=== PATIENT | female | born 1940 | race Caucasian/White ===

== ENCOUNTER 2018-04-22 08:57 | Day surgery (SDC) | payer OTHER ==
[~2018-04-22] VITALS: Ht 149.9 cm; Wt 73.9 kg
[~2018-04-22 08:57] MED LIST: ASPI81CH PO; ASPI81EC PO; ATOR40TA PO; CARV25 PO; CHOL10002 PO; CIPR500 PO; CONEST.625; DIPATR PO; FELO5CR; FELO5CR PO; FURO20; FURO40 PO; HYDACE5 PO; HYDR1TAB94 PO; ISOMON20 PO; LOSA25 PO; MECL12.5 PO; METO100ER PO; METO50ER; METO50ER PO; NITR.4SL SL; PARO20; PARO20 PO; POTA10T PO; POTCHL10ER; POTCHL20ER PO; PROCODE120 PO; PROM25 PO; RANO500T PO; RXDIPATR PO; SPIR25 PO; Senna8.6 MG PO; [UNRECOGNIZED DRUG - CODE] TOP
[2018-04-22] MEDS ORDERED: LEVOCETIRIZINE D5 MG PO (11:06)
== END 2018-04-22 22:42 | disposition home or self-care (01) ==
LOC: ORD 08:57 → ORSCMMR 08:57 → ORD 04-29 10:00
PROVIDERS: Internal Medicine Gastroenterology
PROC: 0DBE8ZX Excision of Large Intestine, Via Natural or Artificial Opening Endoscopic, Diagnostic (ICD-10-PCS; principal; 2018-04-22 11:00)
PROC: 0DBM8ZX Excision of Descending Colon, Via Natural or Artificial Opening Endoscopic, Diagnostic (ICD-10-PCS; principal; 2018-04-22 11:00)
DX: K57.30 Diverticulosis of large intestine without perforation or abscess without bleeding (principal); R15.9 Full incontinence of feces; D12.4 Benign neoplasm of descending colon; Z86.010 Personal history of colon polyps; K64.8 Other hemorrhoids; I25.10 Atherosclerotic heart disease of native coronary artery without angina pectoris; Z79.899 Other long term (current) drug therapy; Z79.82 Long term (current) use of aspirin; Z87.891 Personal history of nicotine dependence
CPT/HCPCS: 88305; J2250; J3010; J7120

== ENCOUNTER 2020-10-23 03:45 | Observation (INO) | payer OTHER ==
[~2020-10-23] VITALS: Ht 149.9 cm; Wt 73.8 kg
[~2020-10-23 03:45] MED LIST changes: -ISOMON20 PO; +Imdur-ER60 MG PO; +LEVOCETIRIZINE D5 MG PO
[2020-10-23 04:04] LABS: BASOPHILS ABSOLUTE AUTO 0.03 K/mm3 (0.00-0.23); BASOPHILS PERCENT AUTO 0 % (0-2); EOSINOPHILS ABSOLUTE AUTO 0.11 K/mm3 (0.00-0.68); EOSINOPHILS PERCENT AUTO 2 % (0-6); Hematocrit 38.9 % (33.0-51.0); Hemoglobin 12.8 g/dL (11.5-16.0); IMMATURE GRAN ABSOLUTE AUTO 0.03 K/mm3 (0.00-0.10); IMMATURE GRAN PERCENT AUTO 0 % (0-1); LYMPHOCYTES ABSOLUTE AUTO 0.94 K/mm3 (0.84-5.20); LYMPHOCYTES PERCENT AUTO 13 % (21-46); MONOCYTES ABSOLUTE AUTO 0.46 K/mm3 (0.16-1.47); MONOCYTES PERCENT AUTO 6 % (4-13); Mean Corpuscular HGB Conc 32.9 g/dL (31.5-36.5); Mean Corpuscular Volume 104 fL (80-100); Mean Platelet Volume 9.5 fL (9.1-12.4); NEUTROPHILS ABSOLUTE AUTO 5.81 K/mm3 (1.96-9.15); NEUTROPHILS PERCENT AUTO 79 % (41-73); Platelet Count 119 K/mm3 (150-400); RDW Coefficient Variation 13.8 % (11.7-14.2); RDW Standard Deviation 53.1 fL (35.1-46.3); Red Blood Cell Count 3.76 M/mm3 (3.80-5.20); White Blood Cell Count 7.38 K/mm3 (4.00-11.30)
[2020-10-23 04:43] LABS: Ethanol (Alcohol), Blood, Med <3 mg/dL
[2020-10-23 04:44] LABS: Alanine Aminotransfer (ALT/SGP 21 U/L (12-78); Albumin, Blood 3.6 g/dL (3.4-5.0); Albumin/Globulin Ratio 1.2 (0.8-1.8); Alk Phos 83 U/L (50-136); Anion Gap 6 mmol/L (6-16); Aspartate Aminotrans (AST/SGOT 24 U/L (12-37); Bilirubin, Total 0.6 mg/dL (0.1-1.0); Blood Urea Nitrogen 17 mg/dL (8-24); Bun/Creatinine Ratio 19.3 (12.0-20.0); CO2, Blood 24 mmol/L (21-32); Calcium, Blood 8.6 mg/dL (8.5-10.1); Chloride, Blood 108 mmol/L (98-108); Creatinine, Blood 0.88 mg/dL (0.40-1.00); Glomerular Filtration Rate >60 (60-); Glucose, Blood 105 mg/dL (70-99); Potassium, Blood 3.8 mmol/L (3.5-5.5); Sodium, Blood 138 mmol/L (136-145); Total Protein, Blood 6.6 g/dL (6.4-8.2)
[2020-10-23 04:49] LABS: Troponin I 0.529 ng/mL (0.000-0.040)
--- NOTE | 2020-10-23 12:15 | NUR ---
echocardiogram complete
--- NOTE | 2020-10-23 17:30 | NUR ---
SHIFT SUMMARY PATIENT IS A/O X3, FORGETS LIMITATIONS. PT IS COOPERATIVE OF CARE AND DOES NOT ALWAYS CALL APPROPIATELY, BED ALARM IN PLACE. VSS THROUGHOUT SHIFT. O2 SATS >94% ON RA THOUGHOUT SHIFT. PT WAS UP TO TOILET W/CANE AND PT WOULD BE UNSTAIDY. PT HAS LASCERATION ON BACK OF HEAD THAT IS C/D/I. NO C/O CHEST PAIN/PRESSURE THROUGHOUT SHIFT. PT C/O PAIN IN NECK AND BACK OF HEAD, TREATED PER EMAR. CALL LIGHT WITHIN REACH OF PT.
--- NOTE | 2020-10-24 04:48 | NUR ---
SHIFT SUMMARY NO ACUTE CHANGES THI SHIFT. VSS. PT AXO. IN SR/PACED. CARRIE REMAIN FIXATED TO OCCIPTAL REGION LAC. NO NEW BLEEDING NOTED. PT UP TO BSC THIS SHIFT, VERY WEAK WITH 2 PERSON ASSIST. PT HAS NOT BEEN IMPULSIVE THIS SHIFT AND HAS CALLED FOR NEEDS APPROPRIATELY. WCTM.
--- NOTE | 2020-10-24 08:10 | NUR ---
INITIAL ASSESSMENT PATIENT ALERT AND ORIENTED X 4. PATIENT IS FORGETFUL AT TIMES. PATIENT PLEASANT AND COOPERATIVE. PATIENT AFEBRILE. PATIENT HAS NO COMPLAINTS OF PAIN OR DISCOMFORT AT THIS TIME. PATIENT 1 TO 2 PERSON ASSIST. PATIENT VERY WEAK AND UNSTEADY ON FEET. PATIENT STATES "MY KNEES ARE USUALLY NOT THIS BAD" AND STATES THAT L KNEE IS LOCKING IN PLACE. PATIENT SATTING 90% AND GREATER ON RA. LUNGS CLEAR IN UPPER LOBES AND DIMINISHED IN LOWER LOBES. PATIENT PACED, HR AT 69. BP 135/59. PATIENT HAS ICD/ PACER. GI AND APPEAR WNL. [address] TO OCCIPITAL REGION. SACRUM REDDENED. PATIENT BEING ASSISTED AND REMINDED TO REPOSITION SELF Q2H TO AVOID PRESSURE SORE. IV FLUSHED AND SALINE LOCKED. BED LOW, CALL LIGHT IN REACH. WILL CONTINUE TO MONITOR PATIENT FREQUENTLY THROUGHOUT SHIFT.
--- NOTE | 2020-10-24 12:09 | NUR ---
PATIENT AFEBRILE. NO COMPLAINTS OF PAIN OR DISCOMFORT. HR IN THE 60S. SBP IN THE 130S. NO OTHER ACUTE CHANGES TO NOTE ON AT THIS TIME. WILL CONTINUE TO MONITOR.
--- NOTE | 2020-10-24 16:15 | NUR ---
PATIENT AFEBRILE. NO COMPLAINTS OF PAIN OR DISCOMFORT. HR IN THE 60S. BP 111/ 47. PATIENT VISITING IN ROOM WITH . NO OTHER ACUTE CHANGES TO NOTE ON AT THIS TIME. WILL CONTINUE TO MONITOR.
--- NOTE | 2020-10-24 18:37 | NUR ---
SHIFT SUMMARY PATIENT REMAINED ALERT AND ORIENTED, HOWEVER FORGETFUL AT TIMES. PATIENT REMIANED AFEBRILE. PATIENT REMAINED 1-2 PERSON ASSIST. PATIENT WEAK AND VERY UNSTEADY ON FEET. HAD TALK WITH PATIENT'S SON TODAY AND HE FEELS LIKE SHE WOULD BE SAFER DISCHARGING TO A SNF THAN TO BACK HOME WITH WHERE SHE WILL LIKELY HAVE ANOTHER FALL. PATIENT HAD NO COMPLAINTS OF PAIN. PATIENT REMAINED SATTING 90% AND GREATER ON RA. PATIENT REMAINED PACED, HR IN THE 60S. SBP LOW 100S TO 130S. GI WNL. PATIENT HAD BM THIS SHIFT. GOOD APPETITE. WNL. NO CHANGES TO SKIN NOTED. AND SON HERE TO VISIT TODAY. PATIENT HAS NO COMPLAINTS AT THIS TIME. BED LOW, CALL LIGHT IN REACH, BED ALARM ON. REPORT WILL BE GIVEN TO ASSUMING SOLDER DEPOSIT OPERATOR NURSE SHORTLY.
--- NOTE | 2020-10-24 21:30 | NUR ---
ASSUMED CARE OF PATIENT AT APPROXIMATELY 1915 FROM REBEKAH Ross RN. PATIENT ALERT AND ORIENTED X4; FORGETFUL AT TIMES. PATIENT REPORTED A HEADACHE; MEDICATED PER EMAR. PATIENT DENIES NUMBNESS, TINGLING, DIZZINESS OR NAUSEA. PATIENT MEDICAL TELE STATUS. PACED ON TELE; OXYGEN SATURATION ABOVE 90% ON ROOM AIR. 2 PERSON MAX ASSIST TO BEDSIDE COMMODE; UNSTEADY GAIT. PATIENT REPORTS SON BROUGHT BOTTLE OF WINE FOR MOTHERS DAY BUT SENT IT HOME FOR . PATIENT REPORTS SHE DRINKS A SMALL GLASS OF WINE EVERY NIGHT BEFORE BED.
--- NOTE | 2020-10-24 22:54 | NUR ---
REPORT GIVEN TO NORM Osorio RN ON SURGICAL FLOOR. PATIENT MEDICAL TELE STATUS; TO BE TRANSFERRED VIA WHEELCHAIR W/ ALL BELONGINGS.
--- NOTE | 2020-10-24 23:48 | NUR ---
TRANSFER TO ROOM 210 PT TO ROOM. AAOX4. TRANSFER FROM WHEELCHAIR TO BED 2 PERSON MODERATE ASSIST, UNSTEADY WITH CANE. ORIENTED TO ROOM + CALL LIGHT USE. VSS. NO ACUTE CHANGES FROM PREVIOUS ASSESSMENT THIS SHIFT. PT REQUESTING SLEEP. CALL LIGHT IN REACH + BED ALARM ON FOR SAFETY.
--- NOTE | 2020-10-25 10:12 | NUR ---
PATIENT RESTING QUIETLY IN BED. OPENS EYES BRIEFLY IN RESPONSE TO HER NAME. BREATHING IS SHALLOW. 2L O2 VIA NC FOR COMFORT. MURILLO AND RECTAL TUBE BOTH PATENT. SEEN BY [facility] PHYSICIAN THIS AM. THIS RN SPOKE WITH DAUGHTER IN LAW ON THE PHONE. DR RODRIGUEZ TO CALL DAUGHTER IN LAW OF PATIENT TO DISCUSS POSSIBLE DISCHARGE HOME WITH HOSPICE.
--- NOTE | 2020-10-25 13:36 | NUR ---
CARE COORDINATION REFERRAL - ADMIT: 10/23/2020 DISCHARGE: DX: ELEVATED TROPNIN, MECHANICAL FALL HEAD LAC. CC: HH [facility] CALL: RESIDENCE: HOME - [address] [place] [id number] CAREGIVER: NIKOLAS POTTER, SPOUSE / PARTNER, DX: CAD, CHRONIC SYSTOLIC HEART FAILURE, BILATERAL ATHEROSCLEROSIS OF CAROTID ARTERIES, ISCHEMIC CONGESTIVE CARDIOMYOPATHY, ESSENTIAL HTN DME: NONE CCM: NO PREVIOUS REFERRALS TO CCM HOME HEALTH: NONE SUMMARY: ADMIT: 10/23/20 10/25/20- PER CHART REVIEW WITH DR. RODRIGUEZ, PT HAS FREQUENT FALLS AND IS A FAILURE TO THRIVE PT. SHE LIVES WITH HER ELDERLY AND HAS NO FAMILY IN TOWN TO HELP. PT IS WORKING WITH PT AND IS RECOMMENDING HOME HEALTH WITH RECOMMENDING BLUEPRINT DUPLICATOR TO COME AND HELP WITH CARE NEEDS. -YUE
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
--- NOTE | 2020-10-25 18:28 | NUR ---
SHIFT SUMMARY PATIENT RESPONDS APPROPRIATELY WHEN AWAKE. TROPONINS TRENDING DOWN. PATIENT WORKED WELL WITH PHYSICAL THERAPY TODAY. TOLERATING REGULAR DIET, VOIDING WELL. PLAN TO DISCHARGE HOME TOMORROW 10/26/20.
--- NOTE | 2020-10-26 05:08 | NUR ---
SHIFT SUMMARY S/P CHEST PAIN, A/O X4 BUT OCCASIONALLY FORGETFUL, VSS, TOLERATING PO, PAIN WELL CONTROLLED PER EMAR, UP W/ ASSISTANCE, POSSIBLE DC LATER TODAY PENDING PT RECOMMENDATION, NO ACUTE EVENTS THIS SHIFT. CALL LIGHT IN REACH, WILL CONTINUE TO MONITOR AND REPORT TO ONCOMING DAY RN.
[2020-10-26] MEDS ORDERED: FOLI1 PO (13:07)
[2020-10-26] MEDS ORDERED: Acetaminophen325 M1 PO (13:07)
[2020-10-26] MEDS ORDERED: B-1100 M1 PO (13:08)
[2020-10-26] MEDS ORDERED: Lisinopril2.5 MG PO (13:08)
[2020-10-26] MEDS ORDERED: Norco 5-325 Ta1 EACH PO (13:08)
--- NOTE | 2020-10-26 14:26 | NUR ---
DC INSTRUCTIONS GIVEN, VERBALIZED UNDERSTANDING, IV DC'D CATH INTACT.
--- NOTE | 2020-10-26 15:46 | NUR ---
10/26/20- met with pt and discussed d/c. She will be going home with her . She acknowledges that they need help and discussed and provided brochures for local assisted living places. Pt was set to d/c and was ready to go. Was not able discuss in details of assisted living. Discussed MIHIR and she acknowledged understanding of MIHIR. She will review information and will call the clinic if she needs help with finding a place to live. -spencer
== END 2020-10-26 14:43 | disposition home or self-care (01) ==
LOC: ER 03:45 → PCU 03:46 → SURS 10-24 23:23
PROVIDERS: Emergency Medicine; ADMIT Family Medicine
PROC: 0HQ0XZZ Repair Scalp Skin, External Approach (ICD-10-PCS; principal; 2020-10-23)
DX: S01.01XA Laceration without foreign body of scalp, initial encounter (principal); I11.0 Hypertensive heart disease with heart failure; I50.22 Chronic systolic (congestive) heart failure; E78.5 Hyperlipidemia, unspecified; J43.9 Emphysema, unspecified; I25.10 Atherosclerotic heart disease of native coronary artery without angina pectoris; R79.89 Other specified abnormal findings of blood chemistry; I25.5 Ischemic cardiomyopathy; D69.59 Other secondary thrombocytopenia; T45.515A Adverse effect of anticoagulants, initial encounter; M47.812 Spondylosis without myelopathy or radiculopathy, cervical region; F41.8 Other specified anxiety disorders; R53.1 Weakness; R53.81 Other malaise; F10.10 Alcohol abuse, uncomplicated; R62.7 Adult failure to thrive; Z91.81 History of falling; Z79.82 Long term (current) use of aspirin; Z23 Encounter for immunization; Z88.0 Allergy status to penicillin; Z88.2 Allergy status to sulfonamides; Z87.891 Personal history of nicotine dependence; Z86.018 Personal history of other benign neoplasm; Z86.73 Personal history of transient ischemic attack (TIA), and cerebral infarction without residual deficits; Z85.3 Personal history of malignant neoplasm of breast; Z95.1 Presence of aortocoronary bypass graft; Z95.810 Presence of automatic (implantable) cardiac defibrillator; W01.10XA Fall on same level from slipping, tripping and stumbling with subsequent striking against unspecified object, initial encounter; Y92.019 Unspecified place in single-family (private) house as the place of occurrence of the external cause
CPT/HCPCS: 12001; 36415; 70450; 72125; 80053; 82550; 82607; 82746; 84484; 85025; 85730; 90471; 90714; 93005; 93010; 93306; 96374; 97112; 97116; 97162; 97165; 97530; 97535; 99285-25; A9270; G0378; G0480; J1644; L0160

== ENCOUNTER 2021-05-21 18:47 | Inpatient (IN) | payer OTHER ==
[~2021-05-21] VITALS: Ht 160 cm; Wt 66.8 kg
[~2021-05-21 18:47] MED LIST changes: +Acetaminophen325 M1 PO; +B-1100 M1 PO; +FOLI1 PO; +Lisinopril2.5 MG PO; +Norco 5-325 Ta1 EACH PO
[2021-05-21 19:06] LABS: PCO2 Arterial 58.3 mmHg (35-45); PO2 Arterial 117 mmHg (80-100)
[2021-05-21 19:06] LABS: BASOPHILS ABSOLUTE AUTO 0.05 K/mm3 (0.00-0.23); BASOPHILS PERCENT AUTO 1 % (0-2); EOSINOPHILS ABSOLUTE AUTO 0.25 K/mm3 (0.00-0.68); EOSINOPHILS PERCENT AUTO 3 % (0-6); Hematocrit 41.1 % (33.0-51.0); Hemoglobin 12.8 g/dL (11.5-16.0); IMMATURE GRAN ABSOLUTE AUTO 0.03 K/mm3 (0.00-0.10); IMMATURE GRAN PERCENT AUTO 0 % (0-1); LYMPHOCYTES ABSOLUTE AUTO 2.08 K/mm3 (0.84-5.20); LYMPHOCYTES PERCENT AUTO 23 % (21-46); MONOCYTES ABSOLUTE AUTO 0.76 K/mm3 (0.16-1.47); MONOCYTES PERCENT AUTO 9 % (4-13); Mean Corpuscular HGB 30.8 pg (26.0-34.0); Mean Corpuscular HGB Conc 31.1 g/dL (31.5-36.5); Mean Corpuscular Volume 99 fL (80-100); Mean Platelet Volume 9.9 fL (9.1-12.4); NEUTROPHILS ABSOLUTE AUTO 5.73 K/mm3 (1.96-9.15); NEUTROPHILS PERCENT AUTO 64 % (41-73); Platelet Count 187 K/mm3 (150-400); RDW Coefficient Variation 14.8 % (11.7-14.2); RDW Standard Deviation 53.5 fL (35.1-46.3); Red Blood Cell Count 4.16 M/mm3 (3.80-5.20)
[2021-05-21 19:07] LABS: pH Blood Arterial 7.27 (7.35-7.45)
[2021-05-21 19:30] LABS: Alanine Aminotransfer (ALT/SGP 57 U/L (12-78); Albumin, Blood 3.6 g/dL (3.4-5.0); Albumin/Globulin Ratio 1.2 (0.8-1.8); Alk Phos 178 U/L (50-136); Anion Gap 7 mmol/L (6-16); Aspartate Aminotrans (AST/SGOT 86 U/L (12-37); Bilirubin, Total 0.9 mg/dL (0.1-1.0); Blood Urea Nitrogen 11 mg/dL (8-24); Bun/Creatinine Ratio 13.5 (12.0-20.0); CO2, Blood 25 mmol/L (21-32); Calcium, Blood 8.3 mg/dL (8.5-10.1); Chloride, Blood 111 mmol/L (98-108); Creatinine, Blood 0.82 mg/dL (0.40-1.00); Globulin, Blood 3.1 g/dL (2.2-4.0); Glomerular Filtration Rate >60 (60-); Glucose, Blood 185 mg/dL (70-99); Potassium, Blood 4.2 mmol/L (3.5-5.5); Sodium, Blood 143 mmol/L (136-145); Total Protein, Blood 6.7 g/dL (6.4-8.2); Troponin I 0.083 ng/mL (0.000-0.040)
[2021-05-21 19:51] LABS: Influenza A, PCR NEGATIVE (NEGATIVE); Influenza B, PCR NEGATIVE (NEGATIVE); Resp Syncytial Virus, PCR NEGATIVE (NEGATIVE); SARS-Cov-2 (COVID-19) PCR, MMC NEGATIVE (NEGATIVE)
[2021-05-22 04:20] LABS: Anion Gap 7 mmol/L (6-16); Blood Urea Nitrogen 13 mg/dL (8-24); Bun/Creatinine Ratio 17.3 (12.0-20.0); CO2, Blood 31 mmol/L (21-32); Calcium, Blood 8.7 mg/dL (8.5-10.1); Chloride, Blood 106 mmol/L (98-108); Creatinine, Blood 0.75 mg/dL (0.40-1.00); Glomerular Filtration Rate >60 (60-); Glucose, Blood 136 mg/dL (70-99); Potassium, Blood 3.6 mmol/L (3.5-5.5); Sodium, Blood 144 mmol/L (136-145)
--- NOTE | 2021-05-22 05:37 | NUR ---
SHIFT SUMMARY PT IS ALERT AND ORIENTED. VITALS ARE STABLE AND THERE HAVE BEEN NO ACUTE CHANGES T/0 THE SHIFT. PT REPORTED MILD CHEST PAIN OF 2/10 WHEN ADMITTED ONTO FLOOR, STATED THAT SHE DID NOT TAKE ANY OF HER EVENING CARDIAC MEDS. DENIES CHEST PAIN NOW. SHE IS CURRENTLY ON 1L NC WITH SATS OF >92%. PT IS NPO AND ONLY TOOK SIPS WITH MEDICATION. CALL LIGHT IS WITHIN REACH.
--- NOTE | 2021-05-22 07:36 | NUR ---
CARE ASSUMPTION THIS RN ASSUMED CARE FROM ALLYN RN AT 0700. PATIENT IS A/OX4. VSS. SPO2 >95% ON 1L NC. TELE SR PACED 74. PATIENT REPORTS NO CHEST PAIN, PAIN, OR SOB. MD BURDEN IN TO SEE PATIENT THIS AM. CALL LIGHT WITHIN REACH AND BED IN LOWEST POSITON. WILL CONTINUE TO MONITOR AND PROVIDE CARE.
[2021-05-22 08:29] LABS: Magnesium, Blood 1.7 mg/dL (1.6-2.4)
[2021-05-22 08:34] LABS: Phosphorus, Blood 4.5 mg/dL (2.5-4.9); Troponin I 0.566 ng/mL (0.000-0.040)
[2021-05-22] MEDS ORDERED: BUPR150ER PO (16:13)
[2021-05-22] MEDS ORDERED: CLOP75 PO (16:13)
--- NOTE | 2021-05-22 17:14 | NUR ---
SHIFT SUMMARY PATIENT IS A/OX4. VSS. MED STATUS WITH NO TELE. PATIENT REPORTS NO SOB, OR CHEST PAIN. PATIENT DOES REPORT A HEADACHE AT 6/10 AND RECIEVED TYLENOL FOR RELEIF. NO ACUTE CHANGES THIS SHIFT. CALL LIGHT WITHIN REACH AND BED IN LOWEST POSITION. WILL CONTINUE TO MONITOR AND PROVIDE CARE UNTIL HAND OFF WITH NEXT SHIFT.
--- NOTE | 2021-05-22 19:47 | NUR ---
ASSUMED CARE PT IS ALERT AND ORIENTED X4. VITALS ARE STABLE AND ON ROOM AIR. PT DENIES CHEST PAIN OR SOB. SHE IS LAYING IN BED, WATCHING TV AND TALKING ON THE PHONE AT THE MOMENT. CALL LIGHT IS WITHIN REACH. WILL CONTINUE TO MONITOR.
--- NOTE | 2021-05-23 05:50 | NUR ---
SHIFT SUMMARY PT IS ALERT AND ORIENTED. VITALS HAVE BEEN STABLE T/O THE NIGHT. PT IS ON ROOM AIR WITH SATS ABOVE 92%. THERE HAVE BEEN NO ACUTE CHANGES. PURE WICK IS IN PLACE WITH NO CHANGES TO SKIN. CALL LIGHT IS WITHIN REACH.
--- NOTE | 2021-05-23 18:13 | NUR ---
SHIFT SUMMARY PT HAS BEEN RESTING IN BED FOR THE DURATION, PT FREQUENTLY REPOSITIONS SELF IN BED. PT IS ALERT AND ORIENTED X4. PT HAS BEEN ON ROOM AIR WITH NO EPISODES OF DESTURATION, SpO2 >90%. NO ACUTE CHANGES TO CURRENT CONDITION.
[2021-05-24 04:24] LABS: BASOPHILS ABSOLUTE AUTO 0.02 K/mm3 (0.00-0.23); BASOPHILS PERCENT AUTO 0 % (0-2); EOSINOPHILS PERCENT AUTO 2 % (0-6); Hematocrit 36.9 % (33.0-51.0); Hemoglobin 11.9 g/dL (11.5-16.0); IMMATURE GRAN ABSOLUTE AUTO 0.01 K/mm3 (0.00-0.10); IMMATURE GRAN PERCENT AUTO 0 % (0-1); LYMPHOCYTES ABSOLUTE AUTO 1.49 K/mm3 (0.84-5.20); LYMPHOCYTES PERCENT AUTO 26 % (21-46); MONOCYTES ABSOLUTE AUTO 0.57 K/mm3 (0.16-1.47); MONOCYTES PERCENT AUTO 10 % (4-13); Mean Corpuscular HGB 30.7 pg (26.0-34.0); Mean Corpuscular HGB Conc 32.2 g/dL (31.5-36.5); Mean Corpuscular Volume 95 fL (80-100); Mean Platelet Volume 10.2 fL (9.1-12.4); NEUTROPHILS ABSOLUTE AUTO 3.57 K/mm3 (1.96-9.15); NEUTROPHILS PERCENT AUTO 62 % (41-73); Platelet Count 151 K/mm3 (150-400); RDW Coefficient Variation 14.9 % (11.7-14.2); RDW Standard Deviation 52.1 fL (35.1-46.3); Red Blood Cell Count 3.87 M/mm3 (3.80-5.20); White Blood Cell Count 5.76 K/mm3 (4.00-11.30)
[2021-05-24 05:32] LABS: Calcium, Blood 9.1 mg/dL (8.5-10.1); Creatinine, Blood 0.97 mg/dL (0.40-1.00); Magnesium, Blood 2.1 mg/dL (1.6-2.4); Potassium, Blood 3.9 mmol/L (3.5-5.5)
--- NOTE | 2021-05-24 06:08 | NUR ---
SHIFT SUMMARY ASSUMED CARE OF PT AT 1900. PT IS A/OX4. HEART SOUNDS IRREGULAR. LUNG SOUNDS HAVE CRACKLES AT THE BASES. PT WAS INCONTINENT T/O THE NIGHT. PT HAD NO NEW COMPLAINTS. CALL LIGHT IN REACH, BED IN LOWEST POSITION.
--- NOTE | 2021-05-24 06:11 | NUR ---
SHIFT SUMMARY ASSUMED CARE OF PT AT 1900. PT IS A/OX4 HEART SOUNDS IRREGULAR, TELE SHOWED PT WAS IN AFIB T/O THE NIGHT. PT RATE TOUCHED INTO THE 160S WITH MOVEMENT AND MAINTAINED IN THE 140S FOR OVER 10 MIN. HOSPITALIST WAS NOTIFED AND ORDERED ONE TIME DOSE OF METOPROLOL WITH NO EFFECTS. 2ND HOSPITALIST WAS CALLED AND ORDERED CARDIZEM AND DIGOXIN. PT RESPONDED WELL AND RATE HAS DECREASED INTO THE 110-120 RANGE. LUNG SOUNDS CLEAR. PT WAS A 1P ASSIST TO BSC WITH WALKER. WHILE GIVING PT AN IV, PT MADE COMMENTS THAT WERE VERYING DEPRESSING. PT STATES THAT THEY ARE A DNR AND THAT SHE WISHED THAT NOTHING BE DONE. PT STATES THAT SHE DOES NOT WANT TO BE A BURDEN TO HER FAMILY AND WISHED THAT SHE WOULD . PT WAS NOT ABLE TO SLEEP WELL THIS NIGHT AND SLEPT IN THE RECLINER INSTEAD. CALL LIGHT IN REACH, BED IN LOWEST POSTION.
[2021-05-24 12:09] LABS: Influenza A, PCR NEGATIVE (NEGATIVE); Influenza B, PCR NEGATIVE (NEGATIVE); Resp Syncytial Virus, PCR NEGATIVE (NEGATIVE); SARS-Cov-2 (COVID-19) PCR, MMC NEGATIVE (NEGATIVE)
--- NOTE | 2021-05-24 16:14 | NUR ---
Per Dr. Ward discharge appropriate for 05/24/21. Patient does not oppose to discharge. Patient discharged and transported to Snf Facility-[facility]. Transportation arranged-[facility]. Patient understands length of stay and SNF is determined on health and progress. [facility] will coordinate follow up appointment with [place] PCP (within seven days of discharge). Patient knows to contact her PCP if she has any questions regarding medication management or any medical or social service needs. DME: patient already has a rollator. Patient to return to [facility] assisted living with spouse upon discharge from SNF. No barriers to discharge.
--- NOTE | 2021-05-24 17:03 | NUR ---
TRANSFER PT TRANSFERRED VIA EMS. [facility] TRANSPORTED PT BY WHEELCHAIR. PT BELONGINGS IN PT'S POSSESSION AT TIME OF TRANSFER. REPORT CALLED TO FACILITY AT 1630.
== END 2021-05-24 16:12 | DRG 291 ==
LOC: ER 18:47 → PCU 20:37
PROVIDERS: Emergency Medicine; Family Medicine; Internal Medicine; ADMIT Internal Medicine
PROC: 5A09357 Assistance with Respiratory Ventilation, Less than 24 Consecutive Hours, Continuous Positive Airway Pressure (ICD-10-PCS; principal; 2021-05-21)
PROC: 3E02340 Introduction of Influenza Vaccine into Muscle, Percutaneous Approach (ICD-10-PCS; 2021-05-21)
DX: I11.0 Hypertensive heart disease with heart failure (principal); I50.23 Acute on chronic systolic (congestive) heart failure; J96.01 Acute respiratory failure with hypoxia; J96.02 Acute respiratory failure with hypercapnia; J44.1 Chronic obstructive pulmonary disease with (acute) exacerbation; E87.2 Acidosis; Z20.822 Contact with and (suspected) exposure to COVID-19; Z66 Do not resuscitate; E83.42 Hypomagnesemia; I25.5 Ischemic cardiomyopathy; I25.10 Atherosclerotic heart disease of native coronary artery without angina pectoris; E78.5 Hyperlipidemia, unspecified; I25.2 Old myocardial infarction; F41.8 Other specified anxiety disorders; M47.892 Other spondylosis, cervical region; Z23 Encounter for immunization; Z86.73 Personal history of transient ischemic attack (TIA), and cerebral infarction without residual deficits; Z95.1 Presence of aortocoronary bypass graft; Z88.0 Allergy status to penicillin; Z88.2 Allergy status to sulfonamides; Z79.82 Long term (current) use of aspirin; Z79.899 Other long term (current) drug therapy; Z87.891 Personal history of nicotine dependence; Z98.890 Other specified postprocedural states; Z90.49 Acquired absence of other specified parts of digestive tract; Z90.89 Acquired absence of other organs; Z85.3 Personal history of malignant neoplasm of breast; Z90.710 Acquired absence of both cervix and uterus; Z95.810 Presence of automatic (implantable) cardiac defibrillator
CPT/HCPCS: 0241U; 36415; 36600; 71045; 80048; 80053; 82803; 82947; 83605; 83735; 83880; 84100; 84145; 84484; 85025; 90686; 93005; 93010; 94644; 94660; 96374; 96375; 97110; 97112; 97116; 97162; 97530; 99285-25; A9270; J1650; J1940; J2405; J2930; J3475

== ENCOUNTER → 2021-09-03 | Outpatient (CLI) | payer OTHER ==
[~2021-09-03] MED LIST changes: +BUPR150ER PO; +CLOP75 PO
[2021-09-06 06:05] LABS: Adenovirus F 40/41 Not Detected (NOT DETECT); Astrovirus Not Detected (NOT DETECT); Campylobacter Sp Not Detected (NOT DETECT); Cryptosporidium Not Detected (NOT DETECT); Cyclospora Cayetanensis Not Detected (NOT DETECT); E. Coli O157 Not Detected (NOT DETECT); Entamoeba Histolytica Not Detected (NOT DETECT); Enteroaggregative E. coli-EAEC Not Detected (NOT DETECT); Enteropathogenic E. coli-EPEC Not Detected (NOT DETECT); Enterotoxigenic E. coli-ETEC Not Detected (NOT DETECT); Giardia Lamblia Not Detected (NOT DETECT); Norovirus GI/GII Not Detected (NOT DETECT); Plesiomonas Shigelloides Not Detected (NOT DETECT); Rotavirus A Not Detected (NOT DETECT); Salmonella Sp Not Detected (NOT DETECT); Sapovirus Not Detected (NOT DETECT); Shiga Toxin-prod E. coli-STEC Not Detected (NOT DETECT); Shigella/Enteroin E. coli-EIEC Not Detected (NOT DETECT); Vibrio Cholerae Not Detected (NOT DETECT); Vibrio Sp Not Detected (NOT DETECT); Yersinia Enterocolitica Not Detected (NOT DETECT)
== END | disposition home or self-care (01) ==
LOC: LAB SHORT 17:35
PROVIDERS: Family Medicine
DX: R19.7 Diarrhea, unspecified (principal)
CPT/HCPCS: 0097U

== ENCOUNTER 2021-10-02 16:16 | Inpatient (IN) | payer OTHER ==
[~2021-10-02] VITALS: Ht 160 cm; Wt 65.0 kg
[2021-10-02 16:34] LABS: PCO2 Arterial 58.6 mmHg (35-45); PO2 Arterial 151 mmHg (80-100)
[2021-10-02 16:35] LABS: pH Blood Arterial 7.25 (7.35-7.45)
[2021-10-02 16:39] LABS: BASOPHILS ABSOLUTE AUTO 0.04 K/mm3 (0.00-0.23); BASOPHILS PERCENT AUTO 1 % (0-2); EOSINOPHILS PERCENT AUTO 2 % (0-6); Hematocrit 38.4 % (33.0-51.0); Hemoglobin 11.3 g/dL (11.5-16.0); IMMATURE GRAN ABSOLUTE AUTO 0.02 K/mm3 (0.00-0.10); IMMATURE GRAN PERCENT AUTO 0 % (0-1); LYMPHOCYTES ABSOLUTE AUTO 1.89 K/mm3 (0.84-5.20); LYMPHOCYTES PERCENT AUTO 28 % (21-46); MONOCYTES ABSOLUTE AUTO 0.57 K/mm3 (0.16-1.47); MONOCYTES PERCENT AUTO 8 % (4-13); Mean Corpuscular HGB 28.5 pg (26.0-34.0); Mean Corpuscular HGB Conc 29.4 g/dL (31.5-36.5); Mean Corpuscular Volume 97 fL (80-100); Mean Platelet Volume 10.2 fL (9.1-12.4); NEUTROPHILS ABSOLUTE AUTO 4.21 K/mm3 (1.96-9.15); NEUTROPHILS PERCENT AUTO 62 % (41-73); Platelet Count 208 K/mm3 (150-400); RDW Coefficient Variation 14.8 % (11.7-14.2); RDW Standard Deviation 53.1 fL (35.1-46.3); Red Blood Cell Count 3.97 M/mm3 (3.80-5.20); White Blood Cell Count 6.83 K/mm3 (4.00-11.30)
[2021-10-02 16:56] LABS: Alanine Aminotransfer (ALT/SGP 26 U/L (12-78); Albumin, Blood 3.9 g/dL (3.4-5.0); Albumin/Globulin Ratio 1.2 (0.8-1.8); Alk Phos 81 U/L (50-136); Anion Gap 4 mmol/L (6-16); Aspartate Aminotrans (AST/SGOT 25 U/L (12-37); Bilirubin, Total 0.8 mg/dL (0.1-1.0); Blood Urea Nitrogen 12 mg/dL (8-24); Bun/Creatinine Ratio 13.4 (12.0-20.0); CO2, Blood 28 mmol/L (21-32); Calcium, Blood 8.7 mg/dL (8.5-10.1); Chloride, Blood 110 mmol/L (98-108); Creatinine, Blood 0.89 mg/dL (0.40-1.00); Globulin, Blood 3.3 g/dL (2.2-4.0); Glomerular Filtration Rate >60 (60-); Glucose, Blood 241 mg/dL (70-99); Potassium, Blood 4.4 mmol/L (3.5-5.5); Sodium, Blood 142 mmol/L (136-145); Total Protein, Blood 7.2 g/dL (6.4-8.2)
[2021-10-02] MEDS ORDERED: BUPR150ER PO (17:35)
[2021-10-02] MEDS ORDERED: OLME20 PO (17:35)
[2021-10-02] MEDS ORDERED: OMEP20ER PO (17:37)
[2021-10-03 04:14] LABS: Base Excess Venous 7.2 mmol/L; Bicarbonate Venous 30.4 mmol/L (24.0-30.0); PCO2 Venous 39.2 mmHg (38-42); PO2 Venous 52.7 mmHg (38-42)
--- NOTE | 2021-10-03 04:45 | NUR ---
SHIFT SUMMARY ER ADMIT. ASSUMED CARE OF PT AT 2013. PT ALERT AND ORIENTED X4. BP STABLE. AFEBRILE. ON 2L NC SATS OVER 98%. HR PACED AFIB 70'S. C/O 2/10 BACK PAIN, RELIED PER EMAR. PT ABLE TO TRANSFER TO BEDSIDE COMMODE WITH X1 ASSIST. PT ON 2G DIET RESTRICTION. IN BED RESTING WITH CALL ALARM AT SIDE. WILL CONTINUE TO MONITOR UNTIL REPORT GIVEN TO DAYSHIFT RN
[2021-10-03 04:48] LABS: Anion Gap 7 mmol/L (6-16); Blood Urea Nitrogen 13 mg/dL (8-24); Bun/Creatinine Ratio 17.6 (12.0-20.0); CO2, Blood 30 mmol/L (21-32); Calcium, Blood 8.6 mg/dL (8.5-10.1); Chloride, Blood 106 mmol/L (98-108); Creatinine, Blood 0.74 mg/dL (0.40-1.00); Glomerular Filtration Rate >60 (60-); Glucose, Blood 86 mg/dL (70-99); Potassium, Blood 3.3 mmol/L (3.5-5.5); Sodium, Blood 143 mmol/L (136-145)
--- NOTE | 2021-10-03 16:51 | NUR ---
SHIFT SUMMARY PT REMAINS ALERT AND ORIENTED. VS STABLE. HR PACED. O2 SATS REMAIN ABOVE 90% ON 2L NC WITH SATS >90%. PT COMPLAINED OF HEADACHE THAT WAS RESOLVED WITH MEDICATION ADMINISTRATION. PT ABLE TO STAND AND TRANSFER TO BSC NEEDED TO VOID. WILL CONTINUE TO MONITOR AND REPORT TO ONCOMING RN
[2021-10-04 04:39] LABS: BASOPHILS ABSOLUTE AUTO 0.02 K/mm3 (0.00-0.23); BASOPHILS PERCENT AUTO 1 % (0-2); EOSINOPHILS ABSOLUTE AUTO 0.06 K/mm3 (0.00-0.68); EOSINOPHILS PERCENT AUTO 2 % (0-6); Hematocrit 30.6 % (33.0-51.0); Hemoglobin 9.3 g/dL (11.5-16.0); IMMATURE GRAN ABSOLUTE AUTO 0.01 K/mm3 (0.00-0.10); IMMATURE GRAN PERCENT AUTO 0 % (0-1); LYMPHOCYTES ABSOLUTE AUTO 0.92 K/mm3 (0.84-5.20); LYMPHOCYTES PERCENT AUTO 24 % (21-46); MONOCYTES ABSOLUTE AUTO 0.51 K/mm3 (0.16-1.47); MONOCYTES PERCENT AUTO 13 % (4-13); Mean Corpuscular HGB 28.4 pg (26.0-34.0); Mean Corpuscular HGB Conc 30.4 g/dL (31.5-36.5); Mean Corpuscular Volume 93 fL (80-100); Mean Platelet Volume 10.1 fL (9.1-12.4); NEUTROPHILS ABSOLUTE AUTO 2.34 K/mm3 (1.96-9.15); NEUTROPHILS PERCENT AUTO 61 % (41-73); Platelet Count 135 K/mm3 (150-400); RDW Coefficient Variation 15.3 % (11.7-14.2); RDW Standard Deviation 52.4 fL (35.1-46.3); Red Blood Cell Count 3.28 M/mm3 (3.80-5.20); White Blood Cell Count 3.86 K/mm3 (4.00-11.30)
[2021-10-04 05:02] LABS: Bun/Creatinine Ratio 20.7 (12.0-20.0); Calcium, Blood 8.3 mg/dL (8.5-10.1); Creatinine, Blood 1.11 mg/dL (0.40-1.00); Potassium, Blood 4.1 mmol/L (3.5-5.5)
--- NOTE | 2021-10-04 05:49 | NUR ---
SHIFT SUMMARY A/OX4, PLEASANT AND COOPERATIVE WITH CARE. 1 ASSIST TO BSC. CURRENTLY ON 1L 02 VIA NC WITH SATS GREATER THAN 92. 2L FLUID RESTRICTION. DENIES PAIN OR SOB. VSS, NO ACUTE CHANGES AT THIS TIME. BED IN LOWEST POSITION WITH CALL LIGHT IN REACH. WILL CONTINUE TO MONITOR AND REPORT TO ONCOMING RN.
--- NOTE | 2021-10-04 17:06 | NUR ---
SHIFT SUMMARY: PT CONTINUES A&O, USES CALL LIGHT APPROPRIATELY, COOPERATIVE W/CARE. VS HAVE BEEN STABLE. PT MAINTAINS O2 SATS >92% ON RA. PACED HR ON MONITOR. PT AMBULATES INTO HALLWAY W/PT, CONTINUES TO TOLERATE SBA TO BSC. DIURESIS AND 2L FR CONTINUES. PT'S SPOUSE CHECKED IN AT THE ER TODAY FOR A NOSE BLEED COMPLAINT, WAS RELEASED TO GO HOME AFTER BLEEDING WAS CONTROLLED. PT HAS BEEN UPDATED ON HER 'S STATUS. POTENTIAL DC HOME TOMORROW, PT IS AWARE OF PLAN. WILL CONTINUE TO MONITOR AND TREAT ACCORDINGLY UNTIL CHANGE OF SHIFT.
[2021-10-05 04:17] LABS: BASOPHILS ABSOLUTE AUTO 0.02 K/mm3 (0.00-0.23); BASOPHILS PERCENT AUTO 0 % (0-2); EOSINOPHILS PERCENT AUTO 2 % (0-6); Hematocrit 31.3 % (33.0-51.0); Hemoglobin 9.7 g/dL (11.5-16.0); IMMATURE GRAN ABSOLUTE AUTO 0.01 K/mm3 (0.00-0.10); IMMATURE GRAN PERCENT AUTO 0 % (0-1); LYMPHOCYTES ABSOLUTE AUTO 0.96 K/mm3 (0.84-5.20); LYMPHOCYTES PERCENT AUTO 21 % (21-46); MONOCYTES ABSOLUTE AUTO 0.74 K/mm3 (0.16-1.47); MONOCYTES PERCENT AUTO 16 % (4-13); Mean Corpuscular HGB 28.5 pg (26.0-34.0); Mean Corpuscular Volume 92 fL (80-100); NEUTROPHILS ABSOLUTE AUTO 2.67 K/mm3 (1.96-9.15); NEUTROPHILS PERCENT AUTO 60 % (41-73); Platelet Count 147 K/mm3 (150-400); RDW Coefficient Variation 15.2 % (11.7-14.2); RDW Standard Deviation 51.3 fL (35.1-46.3)
[2021-10-05 04:41] LABS: Bun/Creatinine Ratio 24.8 (12.0-20.0); Calcium, Blood 8.9 mg/dL (8.5-10.1); Creatinine, Blood 1.01 mg/dL (0.40-1.00); Potassium, Blood 4.9 mmol/L (3.5-5.5)
[2021-10-05] MEDS ORDERED: ALDACTONE25 MG PO (11:19)
--- NOTE | 2021-10-05 12:47 | NUR ---
IV REMOVED, PRESSURE DRESSED, PT EDUCATED TO REMOVE DRESSING IN 20 MINUTES. NO NEW MEDICATIONS, PT EDUCATED ABOUT HER HOME MEDICATION COMPLIANCE AND EDUCATED ABOUT WHAT TO LOOK FOR WITH CHF EXACERBATION, PT AND FAMILY EXPRESSED UNDERSTANDING OF D/C TEACHING
== END 2021-10-05 12:19 | disposition home or self-care (01) | DRG 291 ==
LOC: ER 16:16 → PCU 18:07
PROVIDERS: Emergency Medicine; Family Medicine; Nurse Practitioner Acute Care; ADMIT Internal Medicine
PROC: 5A09357 Assistance with Respiratory Ventilation, Less than 24 Consecutive Hours, Continuous Positive Airway Pressure (ICD-10-PCS; principal; 2021-10-02)
DX: I11.0 Hypertensive heart disease with heart failure (principal); I50.23 Acute on chronic systolic (congestive) heart failure; J96.21 Acute and chronic respiratory failure with hypoxia; J96.22 Acute and chronic respiratory failure with hypercapnia; J44.9 Chronic obstructive pulmonary disease, unspecified; I25.10 Atherosclerotic heart disease of native coronary artery without angina pectoris; R79.89 Other specified abnormal findings of blood chemistry; Z86.73 Personal history of transient ischemic attack (TIA), and cerebral infarction without residual deficits; Z85.3 Personal history of malignant neoplasm of breast; Z95.810 Presence of automatic (implantable) cardiac defibrillator; Z98.890 Other specified postprocedural states; Z95.0 Presence of cardiac pacemaker; Z90.49 Acquired absence of other specified parts of digestive tract; Z90.710 Acquired absence of both cervix and uterus; Z79.899 Other long term (current) drug therapy; Z79.02 Long term (current) use of antithrombotics/antiplatelets; Z88.0 Allergy status to penicillin; Z88.2 Allergy status to sulfonamides
CPT/HCPCS: 36415; 36600; 71045; 80048; 80053; 82803; 83880; 84484; 85025; 93005; 93010; 94640; 94644; 94660; 94664; 94760; 94762; 96374; 97116; 97162; 97165; 97535; 99285-25; A9270; J1650; J1940

== ENCOUNTER → 2022-10-11 | Outpatient (CLI) | payer OTHER ==
[~2022-10-11] MED LIST changes: +ALDACTONE25 MG PO; +MECL25 PO; +OLME20 PO; +OMEP20ER PO; +ONDA4ODT MM
[2022-10-11 16:04] LABS: BASOPHILS ABSOLUTE AUTO 0.03 K/mm3 (0.00-0.23); BASOPHILS PERCENT AUTO 1 % (0-2); EOSINOPHILS ABSOLUTE AUTO 0.11 K/mm3 (0.00-0.68); EOSINOPHILS PERCENT AUTO 2 % (0-6); Hematocrit 38.7 % (33.0-51.0); Hemoglobin 12.6 g/dL (11.5-16.0); IMMATURE GRAN ABSOLUTE AUTO 0.01 K/mm3 (0.00-0.10); IMMATURE GRAN PERCENT AUTO 0 % (0-1); LYMPHOCYTES ABSOLUTE AUTO 1.27 K/mm3 (0.84-5.20); LYMPHOCYTES PERCENT AUTO 26 % (21-46); MONOCYTES ABSOLUTE AUTO 0.54 K/mm3 (0.16-1.47); MONOCYTES PERCENT AUTO 11 % (4-13); Mean Corpuscular HGB 29.2 pg (26.0-34.0); Mean Corpuscular HGB Conc 32.6 g/dL (31.5-36.5); Mean Corpuscular Volume 90 fL (80-100); Mean Platelet Volume 9.7 fL (9.1-12.4); NEUTROPHILS PERCENT AUTO 60 % (41-73); Platelet Count 164 K/mm3 (150-400); RDW Coefficient Variation 16.9 % (11.7-14.2); RDW Standard Deviation 55.7 fL (35.1-46.3); Red Blood Cell Count 4.31 M/mm3 (3.80-5.20); White Blood Cell Count 4.86 K/mm3 (4.00-11.30)
[2022-10-11 16:17] LABS: Albumin/Globulin Ratio 1.2 (0.8-1.8); Bilirubin, Total 0.9 mg/dL (0.1-1.0); Bun/Creatinine Ratio 13.8 (12.0-20.0); Creatinine, Blood 1.16 mg/dL (0.40-1.00); Globulin, Blood 3.4 g/dL (2.2-4.0); Potassium, Blood 3.4 mmol/L (3.5-5.5); Total Protein, Blood 7.4 g/dL (6.4-8.2)
== END | disposition home or self-care (01) ==
LOC: LAB 16:01 → LAB SHORT 16:01
PROVIDERS: Chiropractor
DX: R10.13 Epigastric pain (principal)
CPT/HCPCS: 80053; 83690; 84484; 85025

== ENCOUNTER 2022-11-14 13:53 | Inpatient (IN) | payer OTHER ==
[~2022-11-14] VITALS: Ht 149.9 cm; Wt 66.0 kg
[2022-11-14 14:20] VITALS: BP 132/53
[2022-11-14 14:54] LABS: BASOPHILS ABSOLUTE AUTO 0.04 K/mm3 (0.00-0.23); BASOPHILS PERCENT AUTO 1 % (0-2); EOSINOPHILS ABSOLUTE AUTO 0.06 K/mm3 (0.00-0.68); EOSINOPHILS PERCENT AUTO 1 % (0-6); Hematocrit 33.2 % (33.0-51.0); Hemoglobin 10.8 g/dL (11.5-16.0); IMMATURE GRAN ABSOLUTE AUTO 0.06 K/mm3 (0.00-0.10); IMMATURE GRAN PERCENT AUTO 1 % (0-1); LYMPHOCYTES ABSOLUTE AUTO 0.93 K/mm3 (0.84-5.20); LYMPHOCYTES PERCENT AUTO 20 % (21-46); MONOCYTES ABSOLUTE AUTO 0.41 K/mm3 (0.16-1.47); MONOCYTES PERCENT AUTO 9 % (4-13); Mean Corpuscular HGB 30.1 pg (26.0-34.0); Mean Corpuscular HGB Conc 32.5 g/dL (31.5-36.5); Mean Corpuscular Volume 93 fL (80-100); Mean Platelet Volume 9.3 fL (9.1-12.4); NEUTROPHILS ABSOLUTE AUTO 3.18 K/mm3 (1.96-9.15); NEUTROPHILS PERCENT AUTO 68 % (41-73); Platelet Count 132 K/mm3 (150-400); RDW Coefficient Variation 16.6 % (11.7-14.2); RDW Standard Deviation 57.1 fL (35.1-46.3); Red Blood Cell Count 3.59 M/mm3 (3.80-5.20); White Blood Cell Count 4.68 K/mm3 (4.00-11.30)
[2022-11-14 15:02] LABS: Albumin, Blood 3.6 g/dL (3.4-5.0); Albumin/Globulin Ratio 1.4 (0.8-1.8); Bilirubin, Total 0.8 mg/dL (0.1-1.0); Bun/Creatinine Ratio 16.1 (12.0-20.0); Calcium, Blood 8.7 mg/dL (8.5-10.1); Creatinine, Blood 0.87 mg/dL (0.40-1.00); Globulin, Blood 2.6 g/dL (2.2-4.0); Potassium, Blood 4.5 mmol/L (3.5-5.5); Total Protein, Blood 6.2 g/dL (6.4-8.2)
[2022-11-14 15:19] LABS: International Normalized Ratio 1.07; Prothrombin Time Results 11.2 Sec (9.7-11.5)
--- NOTE | 2022-11-14 16:00 | NUR ---
PT ARRIVED TO UNIT FOR RECOVERY FROM AT APROX 1245 FROM RADIOLOGY FOR R SIDE LUNG BX. PT ARRIVED ON UNIT ON 10L O2 NC, COUGHING UP LARGE AMT BLOODY SPUTUM WHICH SHE HAS SINCE PROCEDURE. PER IMMAGING TECH THIS HAS SLOWED. OVER THE COURSE OF THE NEXT 45 MIN UNABLE TO TITRATE DOWN BELOW 8. DR FELIPE NOTIFIED AND PT WILL BE DIRECT ADMIT TO [place]. DR VILLALOBOS ACCEPTED ADMIT, NURSING ANIMAL CARE PROVIDER NOTIFIED. TO ROOM FOR ADMIT. AT APROX 1340 PT WAS 94% ON 2L, WILL CONTINUE WITH OBSERVATION, PLACE PT ON TELE. PT APPEARS COMFORTABLE, ALL OTHER VSS AT THIS TIME.
--- NOTE | 2022-11-14 17:30 | NUR ---
TELE CALLED THIS RN TO REPORT PT HAD 9 BEAT RUN OF VTACH. PT SITTING UP IN BED, DENIES CP OTHER THAN RIB PAIN THAT SHE HAS BEEN HAVING SINCE MASS WAS FOUND AND WAS MEDICATED FOR. MD NOTIFIED, NO NEW ORDERS AT THIS TIME.
--- NOTE | 2022-11-14 18:48 | NUR ---
SHIFT SUMMARY PT HAS DONE WELL SINCE ADMIT. PT O2 SAT 92% ON 1L O2, DID HAVE INCREASED WOB WITH AMBULATION TO BATHROOM BUT RECOVERED ON L1 NC EASILY. PT MEDICATED WITH NORCO (SEE EMAR) ONCE FOR PAIN TO R CHEST WALL. PT TOLERATING PO. BX SITE TO R UPPER BACK COVERED WITH BANDAID, SCANT AMT DRAINAGE PRESENT UNCHANGED FROM ADMIT. PT HAS BEEN COUGHING UP ONLY SCANT AMT BLOOD STREAKED MUCUS SINCE APROX 1600. PLAN TO CONTINE OBS KATHY LONGORIA TOMORROW.
[2022-11-14 19:09] VITALS: BP 114/50
[2022-11-15 05:46] VITALS: BP 131/52
[2022-11-15 06:38] LABS: BASOPHILS ABSOLUTE AUTO 0.02 K/mm3 (0.00-0.23); BASOPHILS PERCENT AUTO 0 % (0-2); EOSINOPHILS ABSOLUTE AUTO 0.09 K/mm3 (0.00-0.68); EOSINOPHILS PERCENT AUTO 1 % (0-6); Hematocrit 32.7 % (33.0-51.0); Hemoglobin 10.3 g/dL (11.5-16.0); IMMATURE GRAN ABSOLUTE AUTO 0.01 K/mm3 (0.00-0.10); IMMATURE GRAN PERCENT AUTO 0 % (0-1); LYMPHOCYTES ABSOLUTE AUTO 1.09 K/mm3 (0.84-5.20); LYMPHOCYTES PERCENT AUTO 16 % (21-46); MONOCYTES ABSOLUTE AUTO 0.87 K/mm3 (0.16-1.47); MONOCYTES PERCENT AUTO 13 % (4-13); Mean Corpuscular HGB 29.5 pg (26.0-34.0); Mean Corpuscular HGB Conc 31.5 g/dL (31.5-36.5); Mean Corpuscular Volume 94 fL (80-100); Mean Platelet Volume 9.5 fL (9.1-12.4); NEUTROPHILS ABSOLUTE AUTO 4.77 K/mm3 (1.96-9.15); NEUTROPHILS PERCENT AUTO 70 % (41-73); Platelet Count 122 K/mm3 (150-400); RDW Standard Deviation 58.2 fL (35.1-46.3); Red Blood Cell Count 3.49 M/mm3 (3.80-5.20); White Blood Cell Count 6.85 K/mm3 (4.00-11.30)
[2022-11-15 06:56] LABS: Bun/Creatinine Ratio 16.6 (12.0-20.0); Calcium, Blood 8.8 mg/dL (8.5-10.1); Creatinine, Blood 0.9 mg/dL (0.40-1.00); Potassium, Blood 4.1 mmol/L (3.5-5.5)
--- NOTE | 2022-11-15 07:00 | NUR ---
SHIFT SUMMARY HOSPITALIST NOTIFIED @ APPROX 0545 THIS AM OF PT'S INCREASED WORK OF BREATHING & DIMINISHED LUNG SOUNDS/RHALES TO THE RIGHT LOBE. SPO2 REMAINS >90% ON 1L O2 VIA NC, VSS, A&O X4, DENIES PAIN AT THIS THIS TIME AND STATED "IF I HAVE NO PAIN I CAN GO HOME". PT HAS A VERY MOIST COUGH, NO BLOOD NOTED IN SPUTUM BUT PT HAS CHOSEN TO SWALLOW SECRETIONS INSTEAD OF USING A [place]. STAT CHEST XRAY, CBC & BMP WERE ORDERED. PT HAS BEEN TOLERATING PO INTAKE, VOIDING WNL, SBA TO BATHROOM USING FWW, CALLS FOR ASSISTANCE PRN, NORCO GIVEN PER EMAR FOR PAIN. PT IS AWAKE THIS AM, CALL LIGHT IN REACH, XRAY & LABS COMPLETED, WAITING ON RESULTS, REPORT GIVEN TO DAY RN.
[2022-11-15 07:03] VITALS: BP 133/51
[2022-11-15 12:26] VITALS: BP 112/55
[2022-11-15 15:00] VITALS: BP 125/54
--- NOTE | 2022-11-15 15:09 | NUR ---
PT STILL WEAK AND SOB, 2 PERSON ASSIST TO BSC FOR SAFETY, C/O DIZZINESS THIS AM WHEN UP, DENIES ANY DIZZINESS NOW, DR. VILLALOBOS AWARE, PT ON 2L O2 VIA NC, CONT. TO MONITOR FOR ANY CHANGES.
--- NOTE | 2022-11-15 18:03 | NUR ---
SUMMARY SOB TODAY, LUNG SOUNDS DIM. IN R LUNGS, OOB W/ ASSIST TODAY TO CHAIR AND BSC, SLEPT MOST OF THE AFTERNOON, REPORTS FEELING "A LITTLE BETTER" THIS AFTERNOON, DENIES ANY SOB AT THIS TIME, CONT. TO HAVE SOME DYSPNEA W/ SPEAKING, NO OTHER CHANGES THIS SHIFT.
[2022-11-15 19:28] VITALS: BP 113/50
--- NOTE | 2022-11-15 22:45 | NUR ---
RT RT CALLED INTO ROOM TO ASSESS PT'S LUNG STATUS AGAIN. PT STARTED TO COUGH UP BRIGHT RED BLOOD AGAIN, C/O SLIGHT DIZZINESS, BP WNL, SPO2>90% ON 1L O2. NO NEW FINDINGS AT THIS TIME.
[2022-11-15 23:31] VITALS: BP 115/50
--- NOTE | 2022-11-16 03:06 | NUR ---
HOSPITALIST UPDATED. HOSP UPDATED ON CURRENT STATUS, PT CONTINUES TO COUGH UP SMALL AMOUNTS OF BRIGHT RED BLOOD, LUNG SOUNDS UNCHANGED FROM ASSESSMENT, I/S INITIATED AT THE BEGINNING OF SHIFT, SPO2 FLUCTUATES BETWEEN 89-94% ON 2L O2 VIA NC, OCCASIONAL CONFUSION NOTED, PAIN WNL. NO NEW ORDERS AT THIS TIME, WCTM & UPDATE PRN. MACHINE OILER NOTIFIED OF UPDATES WELL.
[2022-11-16 06:16] VITALS: BP 127/54
--- NOTE | 2022-11-16 06:43 | NUR ---
SHIFT SUMMARY PT WAS SHOWING OCCASIONAL SIGNS OF CONFUSION THROUGH THE NIGHT, STARTED COUGHING UP SMALL AMOUNTS OF BLOOD, LUNG SSOUNDS REMAINED UNCHANGED, R.SIDE COARSE/MOIST, SPO2 >92% ON 2L O2, RT CALLED FOR FURTHER EXAM, HOSPITALIST WAS NOTIFIED, NO NEW ORDERS GIVEN, PT WENT TO SLEEP FOR A FEW HRS, MAINTAINED RESP STATUS BUT HAD NO MORE BLOOD, THIS MORNING SHE APPEARS TO BE MORE CONFUSED, SHE IS REFUSING MEDICATION, CAN'T RECALL WHY SHE IS HERE EXACTLY AND REFUSES TO VOID, PT HAS NOT VOIDED THROUGH THE SHIFT & IS REFUSING BLADDER SCAN, SHE DENIES PAIN OR THE URGE AND TOLD STAFF TO "GET THE HELL OUT OF MY ROOM, I DON'T NEED ANY OF THIS". WHEN ASKED TO CLARIFY THE STATEMENT SHE REFERRED TO HER 'S CONSTRUCTION AND THAT SHE IS "NOT WORKING FOR US". V/S ARE STABLE THIS AM, RESP UNLABORED, LUNG SOUNDS UNCHANGED, CHEST XRAY WAS TAKEN, RESULTS PENDING, NO F/U LABS WERE ORDERED FOR THIS MORNING, PT IS CURRENLTY AWAKE RESTING IN BED, CONTINUES TO REFUSE CARE, BED ALARM IS ON FOR SAFETY, CALL LIGHT IN REACH, STATUS REPORTED TO BARREL DEDENTING MACHINE OPERATOR, WCFÉLIX & REPORT TO DAY RN.
[2022-11-16 07:32] VITALS: BP 139/55
--- NOTE | 2022-11-16 08:38 | NUR ---
PT SLIGHTLY CONFUSED THIS AM, ORIENTED TO PLACE, SELF , BED ALARM AND TAB ALARMS IN PLACE, FORGETTING TO USE THE CALL LIGHT, ATTEMPTED TO GET OOB, ASSISTED TO BSC, PT VOIDED, ASSITED TO RECLINER CHAIR FOR BREAKFAST W/ TAB ALARM, PT WAS THEN FOUND SITTING AT THE VERY END OF RECLINER TRYING TO GO BACK TO BED, PT ASSISTED BACK TO BED, BED ALARM PLACED, DENIES ANY SOB, DYSPNEA APPEARS TO HAVE SLIGHTLY IMPROVED, PT ENCOURAGED TO US IS, CONT. TO MONITOR FOR ANY CHANGES.
--- NOTE | 2022-11-16 09:59 | NUR ---
Pt. is awake in bed and welcomes my visit. Pt. is pleasant but became unsettled later when she was informed she wasn't being discharged today. Listened with empathy and a calming presence. Pt. displayed evidence of being engaged and aware, and understood she was waiting for biopsy results, but did not understand the change in her discharge plan. Facilitated a life review and considered matters of kael and belief. Pastoral dormitory counselor is given and I prayed with Pt. Pt. verbalized gratitude for the spiritual care visit. Will remain available to the Pt.
--- NOTE | 2022-11-16 11:34 | NUR ---
A&OX4, VISITING WITH , PT REMEMBERS BEING "CONFUSED" THIS AM, DENIES ANY SOB AT THIS TIME, CONT. TO MONITOR FOR ANY CHANGES.
[2022-11-16 16:11] VITALS: BP 106/56
--- NOTE | 2022-11-16 17:27 | NUR ---
SUMMARY A&O LATER THIS AM, VISITED WITH , DENIES ANY SOB, USING IS, OOB W/ STANDBY ASSIST TO BSC, WORKED WITH PT/OT, CONT. TO HAVE SOME HEMOPTYSIS, OOB TO CHAIR, NO ACUTE CHANGES THIS SHIFT.
[2022-11-16 19:23] VITALS: BP 110/50
[2022-11-17 04:25] LABS: BASOPHILS ABSOLUTE AUTO 0.01 K/mm3 (0.00-0.23); BASOPHILS PERCENT AUTO 0 % (0-2); EOSINOPHILS PERCENT AUTO 0 % (0-6); IMMATURE GRAN ABSOLUTE AUTO 0.05 K/mm3 (0.00-0.10); IMMATURE GRAN PERCENT AUTO 0 % (0-1); LYMPHOCYTES ABSOLUTE AUTO 0.71 K/mm3 (0.84-5.20); LYMPHOCYTES PERCENT AUTO 6 % (21-46); MONOCYTES ABSOLUTE AUTO 0.34 K/mm3 (0.16-1.47); MONOCYTES PERCENT AUTO 3 % (4-13); Mean Corpuscular HGB 29.5 pg (26.0-34.0); Mean Corpuscular HGB Conc 32.3 g/dL (31.5-36.5); Mean Corpuscular Volume 91 fL (80-100); Mean Platelet Volume 9.5 fL (9.1-12.4); NEUTROPHILS ABSOLUTE AUTO 10.27 K/mm3 (1.96-9.15); NEUTROPHILS PERCENT AUTO 90 % (41-73); Platelet Count 147 K/mm3 (150-400); RDW Coefficient Variation 16.9 % (11.7-14.2); RDW Standard Deviation 56.9 fL (35.1-46.3); Red Blood Cell Count 3.39 M/mm3 (3.80-5.20); White Blood Cell Count 11.38 K/mm3 (4.00-11.30)
--- NOTE | 2022-11-17 04:29 | NUR ---
SHIFT SUMMARY NO ACUTE EVENTS THIS SHIFT. PATIENT DENIES CHEST PRESSURE/PAIN. SPO2>94% ON 2L NC. PRODUCTIVE COUGH, NO NOTED BLOOD IN SPUTUM. PATIENT DENIES NEED FOR PAIN MEDICATION. SBA TO BSC VOIDING DARK URINE. FLUID RESTRICTION OF 1500ML IN PLACE. ENOURAGED INSENTIVE SPIROMETER. TELE IN PLACE SHOWING VENTRICULAR PACED @84 PER ZEESHAN ADMISSIONS SUPERVISOR. VSS, CALL LIGHT IN REACH, BED ALARM ON FOR SAFETY. WILL REPORT TO DAY RN
[2022-11-17 04:42] VITALS: BP 112/50
[2022-11-17 04:52] LABS: Bun/Creatinine Ratio 27.9 (12.0-20.0); Calcium, Blood 8.9 mg/dL (8.5-10.1); Creatinine, Blood 1.11 mg/dL (0.40-1.00); Potassium, Blood 3.8 mmol/L (3.5-5.5)
[2022-11-17 07:07] VITALS: BP 127/44
[2022-11-17 15:43] VITALS: BP 124/57
--- NOTE | 2022-11-17 16:49 | NUR ---
Pt. is awake and sitting upright in her recliner when she welcomes my visit. Pt. is pleasant, and verbalizes updates on her prognosis. Pt. is mildly unsettled by the results of a lung biopsy. Listened with empathy, interest, and a calkming presence. Continued a life review and considered matters of kael and belief. Pt displayed evidence of rosina as she spoke of her younger years. Prayed with Pt. Pt. verbalized gratitude for the spiritual care visit.
--- NOTE | 2022-11-17 18:19 | NUR ---
SHIFT SUMMARY PT A&0X4, VSS/RA, EMILY PO, VOIDING/BSC, AMB SBA W/FWW, UP TO CHAIR FOR MEALS, DENIES PAIN, DENIES SOB, BIOX BEDSIDE. PT HAS DONE TCDB/I.S./FLUTTER VALVE T/O SHIFT. WILL REPORT TO ONCOMING NOC RN.
[2022-11-17 19:40] VITALS: BP 118/93
[2022-11-18 03:24] VITALS: BP 129/54
--- NOTE | 2022-11-18 04:39 | NUR ---
TELE/RHYTHM AROUND 414 THIS NURSE NOTIFIED BY WEEDER THINNER PT HAD 9 BEAT RUN V.TACH & HAD CONVERTED BACK TO VENT. PACED HR 70. VSS. PT DENIES ANY DISCOMFORT. DISCUSSED c LOSS CONTROL ENGINEER NORM Osorio WILL MONITOR.
--- NOTE | 2022-11-18 06:42 | NUR ---
SHIFT SUMMARY AOX4. ANSWERS QUESTIONS APPROP & FOLLOWS DIRECTIONS. TELE V. PACED HR 70'S, PT DID HAVE 9 BEAT RUN VTACH, READ PREVIOUS NOTE. VSS. SPO2 89-93% ON 2L O2, WEARS RA @BASELINE. DR VILLALOBOS ORDERED TO TITRATE O2, HOWEVER O2 89-90% WHILE PT WAS ASLEEP, THEREFORE TITRATED TO 1.5L O2. OCC PRODUCTIVE MOIST COUGH c SM AMOUNT RED BLOOD SPUTUM, E/U RESP, BS DIM & COARSE. REPORTS 4/10 PAIN IN RIBS. REPORTS NO BM SINCE SUNDAY MORNING, BOWEL CARE ORDERED PER CORY, PRUNE JUICE GIVEN. CALL LIGHT IN REACH, PT ABLE TO MAKE NEEDS KNOWN.
[2022-11-18 07:56] VITALS: BP 116/53
[2022-11-18 15:12] VITALS: BP 121/57
--- NOTE | 2022-11-18 16:19 | NUR ---
SHIFT SUMMARY PT WEANED TO 1L NASAL CANULA AT THIS TIME. SATS 91%, WILL CONTINUE TO WEAN TOLERATED. PT FEELS COUGHING MUCH IMPROVED TODAY. MINIMAL NOTED BY THIS RN T/O SHIFT. PT AMBULATES WELL TO RESTROOM USING WALKER. DENIES SOB WITH EXERTION. PT RECIEVED PATHOLOGY RESULTS OF ADENOCARCINOMA TODAY, PT VISITING WITH FAMILY. SHE IS LOOKING FORWARD TO MEETING WITH ONCOLOGY TO DISCUSS HER OPTIONS.
[2022-11-18 19:56] VITALS: BP 137/55
--- NOTE | 2022-11-19 05:01 | NUR ---
SHIFT SUMMARY AOX4. VSS. TELE V. PACED HR 68. DENIES N/V OR DYSPNEA @RST. REPORTS 4/10 PAIN IN RIBS/CHEST WALL, DENIES THE NEED FOR MEDICATION. SPO2 91-94% ON 1.5L, WAS ON 1L & SPO2 MAINTAINING 89-90%. BREATH SOUNDS COARSE c SCATTERED CRACKLES. HAS PRODUCTIVE COUGH, NO BLOODY OR TINGED SPUTUM TONIGHT. ABD NONTENDER TO PALPATION, ACTIVE BT, TOLERATING PO, NO BM THIS SHIFT, BOWEL CARE MEDS GIVEN PER ORDERS, PT HAS STARTED PASSING FLATUS. CALL LIGHT IN REACH & PT ABLE TO MAKE NEEDS KNOWN.
[2022-11-19 05:02] VITALS: BP 136/56
[2022-11-19 07:59] VITALS: BP 136/44
[2022-11-19 08:00] VITALS: BP 135/54
[2022-11-19 09:15] VITALS: BP 127/52
--- NOTE | 2022-11-19 10:37 | NUR ---
RT IN ROOM TO TEACH PT HOW TO USE INHALER WITH SPACER. PT WAS ABLE TO PERFORM. PT TITRATED TO ROOM AIR AT 0900. SATS REMAIN 91% OR HIGHER. PT REPORTS BREATHING FEELS BETTER TODAY.
--- NOTE | 2022-11-19 10:55 | NUR ---
PT SLEEPING IN ROOM AT THIS TIME. SATS 89-90% ON ROOM AIR
--- NOTE | 2022-11-19 11:53 | NUR ---
PT ABLE TO WALK TO BATHROOM AND BACK ON ROOM AIR. SATS 94%.
[2022-11-19] MEDS ORDERED: ALBU90OI INH (13:06)
[2022-11-19] MEDS ORDERED: Tessalon200 MG PO (13:06)
[2022-11-19] MEDS ORDERED: Prednisone10 MG PO (13:07)
[2022-11-19] MEDS ORDERED: MIRALAX17 GM PO (13:07)
[2022-11-19] MEDS ORDERED: CEFD300 PO (13:08)
[2022-11-19] MEDS ORDERED: SENNA LAXATIVE8.6 MG PO (13:08)
[2022-11-19 14:29] VITALS: BP 143/63
--- NOTE | 2022-11-19 15:02 | NUR ---
ENTERED ROOM, PT THROWING UP OVER TOILET. FOOD CHUNKS IN TOILET AND SMALL CLOTS. PT REPORTS THIS HAPPENS TO HER AT HOME OCCASIONALLY AFTER A "DIZZY SPELL". SHE HAS ZOFRAN TABLETS AT HOME SHE TAKES WHEN THIS HAPPENS. PT DENIES DIZZINESS CURRENTLY. MEDICATED PER EMAR. NOTIFIED DR. VILLALOBOS.
--- NOTE | 2022-11-19 16:02 | NUR ---
DISCHARGE DISCHARGE INSTRUCTIONS GONE OVER WITH PATIENT AND FAMILY. EXPRESSED IMPORTANCE OF FOLLOWING UP WITH HER APPOINTMENTS. SHE CONTINUES TO REPORT THAT HER BREATHING FEELS BETTER T/O THE SHIFT. VERY MINIMAL CLOTS COUGHED UP DURING SHIFT. TOLERATING DIET WELL. PT LOOKING FORWARD TO LEAVING, ALL BELONGINGS TAKEN WITH PATIENT.
== END 2022-11-19 16:07 | disposition home or self-care (01) | DRG 199 ==
LOC: SURS 13:53
PROVIDERS: Internal Medicine; ADMIT Internal Medicine
PROC: 0BBC3ZX Excision of Right Upper Lung Lobe, Percutaneous Approach, Diagnostic (ICD-10-PCS; principal; 2022-11-14)
DX: J93.83 Other pneumothorax (principal); J96.01 Acute respiratory failure with hypoxia; J44.1 Chronic obstructive pulmonary disease with (acute) exacerbation; I50.22 Chronic systolic (congestive) heart failure; C34.11 Malignant neoplasm of upper lobe, right bronchus or lung; J95.830 Postprocedural hemorrhage of a respiratory system organ or structure following a respiratory system procedure; R04.2 Hemoptysis; Z66 Do not resuscitate; I11.0 Hypertensive heart disease with heart failure; I25.10 Atherosclerotic heart disease of native coronary artery without angina pectoris; M40.209 Unspecified kyphosis, site unspecified; R91.1 Solitary pulmonary nodule; K59.00 Constipation, unspecified; E78.5 Hyperlipidemia, unspecified; Z86.73 Personal history of transient ischemic attack (TIA), and cerebral infarction without residual deficits; Z95.1 Presence of aortocoronary bypass graft; Z85.3 Personal history of malignant neoplasm of breast; Z90.89 Acquired absence of other organs; Z90.710 Acquired absence of both cervix and uterus; Z98.890 Other specified postprocedural states; Z87.891 Personal history of nicotine dependence; Z88.0 Allergy status to penicillin; Z88.2 Allergy status to sulfonamides; Z79.899 Other long term (current) drug therapy; Z79.02 Long term (current) use of antithrombotics/antiplatelets; Z95.5 Presence of coronary angioplasty implant and graft; Z95.810 Presence of automatic (implantable) cardiac defibrillator; Z90.49 Acquired absence of other specified parts of digestive tract; Z79.01 Long term (current) use of anticoagulants
CPT/HCPCS: 36415; 71045; 80048; 80053; 83880; 85025; 85610; 93289; 94640; 94664; 94760; 94761; 94762; 97110; 97116; 97162; 97165; 97530; 97535; A9270; G0378; J0696; J1940; J2405; J2920; J7040

== ENCOUNTER 2023-03-01 07:56 | Day surgery (SDC) | payer OTHER ==
[~2023-03-01] VITALS: Ht 149.9 cm; Wt 65.3 kg
[2023-03-01] VITALS (12 sets, daily range): BP systolic 72–123; BP diastolic 37–80
[~2023-03-01 07:56] MED LIST changes: +ALBU90OI INH; +CEFD300 PO; +MIRALAX17 GM PO; +Prednisone10 MG PO; +SENNA LAXATIVE8.6 MG PO; +Tessalon200 MG PO
[2023-03-01 08:39] LABS: BASOPHILS ABSOLUTE AUTO 0.03 K/mm3 (0.00-0.23); BASOPHILS PERCENT AUTO 1 % (0-2); EOSINOPHILS ABSOLUTE AUTO 0.22 K/mm3 (0.00-0.68); EOSINOPHILS PERCENT AUTO 5 % (0-6); Hematocrit 34.6 % (33.0-51.0); Hemoglobin 11.1 g/dL (11.5-16.0); IMMATURE GRAN ABSOLUTE AUTO 0.01 K/mm3 (0.00-0.10); IMMATURE GRAN PERCENT AUTO 0 % (0-1); LYMPHOCYTES ABSOLUTE AUTO 0.71 K/mm3 (0.84-5.20); LYMPHOCYTES PERCENT AUTO 16 % (21-46); MONOCYTES PERCENT AUTO 14 % (4-13); Mean Corpuscular HGB 27.9 pg (26.0-34.0); Mean Corpuscular HGB Conc 32.1 g/dL (31.5-36.5); Mean Corpuscular Volume 87 fL (80-100); Mean Platelet Volume 9.6 fL (9.1-12.4); NEUTROPHILS ABSOLUTE AUTO 2.81 K/mm3 (1.96-9.15); NEUTROPHILS PERCENT AUTO 64 % (41-73); Platelet Count 139 K/mm3 (150-400); RDW Coefficient Variation 16.3 % (11.7-14.2); RDW Standard Deviation 51.7 fL (35.1-46.3); Red Blood Cell Count 3.98 M/mm3 (3.80-5.20); White Blood Cell Count 4.38 K/mm3 (4.00-11.30)
[2023-03-01 08:57] LABS: International Normalized Ratio 1.04; Prothrombin Time Results 10.9 Sec (9.7-11.5)
[2023-03-01 09:02] LABS: Albumin, Blood 3.6 g/dL (3.4-5.0); Albumin/Globulin Ratio 1.3 (0.8-1.8); Bilirubin, Total 0.9 mg/dL (0.1-1.0); Bun/Creatinine Ratio 22.2 (12.0-20.0); Calcium, Blood 8.8 mg/dL (8.5-10.1); Creatinine, Blood 0.94 mg/dL (0.40-1.00); Globulin, Blood 2.8 g/dL (2.2-4.0); Total Protein, Blood 6.4 g/dL (6.4-8.2)
--- NOTE | 2023-03-01 11:18 | NUR ---
PATIENT RETURNED TO THE RECOVERY ROOM S/P GENERATOR CHANGE. DRESSIG TO THE LEFT CHEST WALL CDI. PATIENT PLACED ON THE MONITOR. CALL LIGHT IN REACH, SIDE RAILS UP X TWO. CALLED FAMILY MEMBER ON CELL. ORDERED TRAY AND GOT PATIENT JUICE TO DRINK.
--- NOTE | 2023-03-01 13:12 | NUR ---
PATIENT UP OOB, OFF MONITOR, ASSITED WITH DRESSING AND PIV REMOVED FROM THE LEFT AC. PRESSURE DRESSING APPLIED, CATH TIP INTACT. REVIEWED DISCHARGE INSTRUCTIONS WITH THE SON.
[2023-03-01] MEDS ORDERED: CEPH500 PO (13:29)
--- NOTE | 2023-03-01 13:47 | NUR ---
PATEINT DISCAHRGED VIA WHEELCHAIR WITH SON STAFF ATTORNEY.
== END 2023-03-01 15:00 | disposition home or self-care (01) ==
LOC: MHTC 07:56
PROVIDERS: Internal Medicine Cardiovascular Disease
DX: Z45.010 Encounter for checking and testing of cardiac pacemaker pulse generator [battery] (principal); I11.0 Hypertensive heart disease with heart failure; I50.22 Chronic systolic (congestive) heart failure; I44.7 Left bundle-branch block, unspecified; I25.10 Atherosclerotic heart disease of native coronary artery without angina pectoris; E78.5 Hyperlipidemia, unspecified; I25.2 Old myocardial infarction; Z88.0 Allergy status to penicillin; Z79.02 Long term (current) use of antithrombotics/antiplatelets; Z79.899 Other long term (current) drug therapy
CPT/HCPCS: 33264; 80053; 85025; 85610; 99152; 99153; C1882; J1644; J2250; J3010; J3370; J7030; J7040

== ENCOUNTER → 2023-05-09 | Outpatient (CLI) | payer OTHER ==
[~2023-05-09] MED LIST changes: +CEPH500 PO
[2023-05-09 15:41] LABS: BASOPHILS ABSOLUTE AUTO 0.02 K/mm3 (0.00-0.23); BASOPHILS PERCENT AUTO 0 % (0-2); EOSINOPHILS PERCENT AUTO 2 % (0-6); Hematocrit 38.1 % (33.0-51.0); Hemoglobin 12.1 g/dL (11.5-16.0); IMMATURE GRAN ABSOLUTE AUTO 0.02 K/mm3 (0.00-0.10); IMMATURE GRAN PERCENT AUTO 0 % (0-1); LYMPHOCYTES ABSOLUTE AUTO 0.83 K/mm3 (0.84-5.20); LYMPHOCYTES PERCENT AUTO 17 % (21-46); MONOCYTES ABSOLUTE AUTO 0.45 K/mm3 (0.16-1.47); MONOCYTES PERCENT AUTO 9 % (4-13); Mean Corpuscular HGB 29.1 pg (26.0-34.0); Mean Corpuscular HGB Conc 31.8 g/dL (31.5-36.5); Mean Corpuscular Volume 92 fL (80-100); Mean Platelet Volume 9.1 fL (9.1-12.4); NEUTROPHILS ABSOLUTE AUTO 3.43 K/mm3 (1.96-9.15); NEUTROPHILS PERCENT AUTO 71 % (41-73); Platelet Count 169 K/mm3 (150-400); RDW Coefficient Variation 17.5 % (11.7-14.2); RDW Standard Deviation 58.1 fL (35.1-46.3); Red Blood Cell Count 4.16 M/mm3 (3.80-5.20); White Blood Cell Count 4.85 K/mm3 (4.00-11.30)
[2023-05-09 15:55] LABS: Albumin, Blood 3.6 g/dL (3.4-5.0); Albumin/Globulin Ratio 1.2 (0.8-1.8); Bilirubin, Total 0.8 mg/dL (0.1-1.0); Bun/Creatinine Ratio 18.6 (12.0-20.0); Calcium, Blood 8.9 mg/dL (8.5-10.1); Creatinine, Blood 0.86 mg/dL (0.40-1.00); Total Protein, Blood 6.6 g/dL (6.4-8.2)
== END | disposition home or self-care (01) ==
LOC: LAB 15:13 → LAB SHORT 15:13
PROVIDERS: Family Medicine
DX: N30.01 Acute cystitis with hematuria (principal); R82.90 Unspecified abnormal findings in urine
CPT/HCPCS: 80053; 85025; 87086

== ENCOUNTER 2023-06-06 16:04 | Emergency (ER) | payer OTHER ==
[~2023-06-06] VITALS: Ht 154.9 cm; Wt 68.0 kg
[2023-06-06 16:38] LABS: BASOPHILS ABSOLUTE AUTO 0.01 K/mm3 (0.00-0.23); BASOPHILS PERCENT AUTO 0 % (0-2); EOSINOPHILS ABSOLUTE AUTO 0.01 K/mm3 (0.00-0.68); EOSINOPHILS PERCENT AUTO 0 % (0-6); Hematocrit 36.7 % (33.0-51.0); Hemoglobin 11.7 g/dL (11.5-16.0); IMMATURE GRAN ABSOLUTE AUTO 0.02 K/mm3 (0.00-0.10); IMMATURE GRAN PERCENT AUTO 0 % (0-1); LYMPHOCYTES ABSOLUTE AUTO 0.16 K/mm3 (0.84-5.20); LYMPHOCYTES PERCENT AUTO 3 % (21-46); MONOCYTES ABSOLUTE AUTO 0.17 K/mm3 (0.16-1.47); MONOCYTES PERCENT AUTO 3 % (4-13); Mean Corpuscular HGB 29.4 pg (26.0-34.0); Mean Corpuscular HGB Conc 31.9 g/dL (31.5-36.5); Mean Corpuscular Volume 92 fL (80-100); Mean Platelet Volume 9.2 fL (9.1-12.4); NEUTROPHILS ABSOLUTE AUTO 4.71 K/mm3 (1.96-9.15); NEUTROPHILS PERCENT AUTO 93 % (41-73); Platelet Count 110 K/mm3 (150-400); RDW Standard Deviation 57.8 fL (35.1-46.3); Red Blood Cell Count 3.98 M/mm3 (3.80-5.20); White Blood Cell Count 5.08 K/mm3 (4.00-11.30)
[2023-06-06 17:16] LABS: Albumin, Blood 3.5 g/dL (3.4-5.0); Albumin/Globulin Ratio 1.2 (0.8-1.8); Bilirubin, Total 0.8 mg/dL (0.1-1.0); Bun/Creatinine Ratio 15.7 (12.0-20.0); Calcium, Blood 8.5 mg/dL (8.5-10.1); Creatinine, Blood 0.76 mg/dL (0.40-1.00); Potassium, Blood 3.8 mmol/L (3.5-5.5); Total Protein, Blood 6.5 g/dL (6.4-8.2)
[2023-06-06 18:23] LABS: Influenza A, PCR NEGATIVE (NEGATIVE); Influenza B, PCR NEGATIVE (NEGATIVE); Resp Syncytial Virus, PCR NEGATIVE (NEGATIVE); SARS-Cov-2 (COVID-19) PCR, MMC NEGATIVE (NEGATIVE)
[2023-06-06 18:34] LABS: Source, Urine Fem Cath
[2023-06-06 18:37] LABS: Appearance, Urine Clear (Clear); Bilirubin, Urine Neg (Neg); Blood, Urine 3+ (Neg); Color, Urine Yellow (P-Yellow); Glucose Qualitative, Urine Neg (Neg); Ketones, Urine Neg (Neg); Leukocyte Esterase, Urine Neg (Neg); Nitrite, Urine Neg (Neg); Protein, Urine 1+ (Neg); Specific Gravity, Urine 1.025 (1.003-1.022); Urobilinogen, Urine NORM (Normal)
[2023-06-06 18:44] LABS: Bacteria Few /hpf; Squamous Epithelial Cells Few /hpf (Few); White Blood Cells, Urine 0-2 /hpf (0-5)
[2023-06-06 21:01] VITALS: BP 142/94
== END 2023-06-06 21:11 | disposition home or self-care (01) ==
LOC: ER 16:04
PROVIDERS: Emergency Medicine
DX: B34.9 Viral infection, unspecified (principal); I11.0 Hypertensive heart disease with heart failure; I50.22 Chronic systolic (congestive) heart failure; I25.10 Atherosclerotic heart disease of native coronary artery without angina pectoris; E78.5 Hyperlipidemia, unspecified; J44.9 Chronic obstructive pulmonary disease, unspecified; Z88.0 Allergy status to penicillin; Z88.2 Allergy status to sulfonamides; Z79.02 Long term (current) use of antithrombotics/antiplatelets; Z79.899 Other long term (current) drug therapy; Z87.891 Personal history of nicotine dependence
CPT/HCPCS: 0241U; 71045; 80053; 81001; 85025; 93005; 93010; 96360; 99285-25; J7030; P9612

== ENCOUNTER 2023-07-26 10:52 | Emergency (ER) | payer OTHER ==
[~2023-07-26] VITALS: Ht 149.9 cm; Wt 59.0 kg
[~2023-07-26 10:52] MED LIST changes: +FAMO20 PO; +METO10 PO
[2023-07-26 12:21] LABS: BASOPHILS ABSOLUTE AUTO 0.02 K/mm3 (0.00-0.23); BASOPHILS PERCENT AUTO 0 % (0-2); EOSINOPHILS ABSOLUTE AUTO 0.13 K/mm3 (0.00-0.68); EOSINOPHILS PERCENT AUTO 2 % (0-6); Hematocrit 37.5 % (33.0-51.0); Hemoglobin 12.3 g/dL (11.5-16.0); IMMATURE GRAN ABSOLUTE AUTO 0.03 K/mm3 (0.00-0.10); IMMATURE GRAN PERCENT AUTO 1 % (0-1); LYMPHOCYTES PERCENT AUTO 18 % (21-46); MONOCYTES ABSOLUTE AUTO 0.54 K/mm3 (0.16-1.47); MONOCYTES PERCENT AUTO 9 % (4-13); Mean Corpuscular HGB 29.3 pg (26.0-34.0); Mean Corpuscular HGB Conc 32.8 g/dL (31.5-36.5); Mean Corpuscular Volume 89 fL (80-100); Mean Platelet Volume 10.6 fL (9.1-12.4); NEUTROPHILS ABSOLUTE AUTO 4.44 K/mm3 (1.96-9.15); NEUTROPHILS PERCENT AUTO 71 % (41-73); Platelet Count 129 K/mm3 (150-400); RDW Coefficient Variation 17.2 % (11.7-14.2); RDW Standard Deviation 55.8 fL (35.1-46.3); White Blood Cell Count 6.26 K/mm3 (4.00-11.30)
[2023-07-26 12:47] LABS: Albumin, Blood 3.7 g/dL (3.4-5.0); Albumin/Globulin Ratio 1.2 (0.8-1.8); Bilirubin, Total 1.3 mg/dL (0.1-1.0); Bun/Creatinine Ratio 29.3 (12.0-20.0); Calcium, Blood 9.6 mg/dL (8.5-10.1); Creatinine, Blood 1.23 mg/dL (0.40-1.00); Globulin, Blood 3.1 g/dL (2.2-4.0); Potassium, Blood 4.5 mmol/L (3.5-5.5); Total Protein, Blood 6.8 g/dL (6.4-8.2)
[2023-07-26] MEDS ORDERED: Ondansetron 4 MG SoluTab MM ONE (16:20)
[2023-07-26] MEDS ORDERED: Prochlorperazine Maleate 5 MG Tab PO ONE (16:20)
[2023-07-26] MEDS ORDERED: PROM12.5S PR (17:10)
[2023-07-26] MEDS ORDERED: RX Prepack 2 Tabs Ondansetron ODT 4MG UD ONE (17:30)
[2023-07-26 20:00] VITALS: BP 110/47
== END 2023-07-26 20:10 | disposition home or self-care (01) ==
LOC: ER 10:52
PROVIDERS: Physician Assistant
DX: R11.2 Nausea with vomiting, unspecified (principal); E86.0 Dehydration; R10.31 Right lower quadrant pain; Z88.0 Allergy status to penicillin; Z88.2 Allergy status to sulfonamides; Z79.899 Other long term (current) drug therapy; Z87.891 Personal history of nicotine dependence; I50.22 Chronic systolic (congestive) heart failure; I25.10 Atherosclerotic heart disease of native coronary artery without angina pectoris; Z85.3 Personal history of malignant neoplasm of breast; I11.0 Hypertensive heart disease with heart failure; J44.9 Chronic obstructive pulmonary disease, unspecified
CPT/HCPCS: 74176; 80053; 83690; 85025; 99284-25; A9270; Q0164

== ENCOUNTER → 2023-08-06 | Outpatient (CLI) | payer OTHER ==
[~2023-08-06] MED LIST changes: +ATOR20 PO; -ATOR40TA PO; +Acetaminophen650 M1 PO; +BISA10S PR; +BISMUTH SUBSALICYLAT PO; -CARV25 PO; +CEFDINIR300 M4 PO; +Carvedilol12.5 MG PO; +DULCOLAX400 MG/5 M PO; +Fleet Enema132 ML PR; +MELATONIN10 M1 PO; +METO25ER PO; +METO5A PO; -OLME20 PO; +OLME5TAB PO; +Ondansetron Odt8 MG MM; +PROM12.5S PR; +VITAMIN D350 MC3 PO; +VITAMIN E400 UNIT PO
[2023-08-06 15:20] LABS: Source, Urine Clean Catch
[2023-08-06 16:25] LABS: Appearance, Urine Clear (Clear); Bilirubin, Urine Neg (Neg); Blood, Urine Neg (Neg); Color, Urine Yellow (P-Yellow); Glucose Qualitative, Urine Neg (Neg); Ketones, Urine Neg (Neg); Leukocyte Esterase, Urine 1+ (Neg); Nitrite, Urine Neg (Neg); Protein, Urine Neg (Neg); Urobilinogen, Urine NORM (Normal)
[2023-08-06 17:04] LABS: Red Blood Cells, Urine 0-2 /hpf (0-2); Squamous Epithelial Cells Few /hpf (Few)
[2023-08-06 17:05] LABS: Bacteria Mod /hpf
== END ==
LOC: LAB SHORT 15:16 → LAB 15:16
PROVIDERS: Internal Medicine
DX: N39.0 Urinary tract infection, site not specified (principal)
CPT/HCPCS: 81001; 87086

== ENCOUNTER 2023-08-08 12:49 | Inpatient (IN) | payer OTHER ==
[~2023-08-08] VITALS: Ht 149.9 cm; Wt 60.3 kg
[~2023-08-08 12:49] MED LIST changes: -Acetaminophen650 M1 PO; -BISA10S PR; -BISMUTH SUBSALICYLAT PO; -CEFDINIR300 M4 PO; -DULCOLAX400 MG/5 M PO; -Fleet Enema132 ML PR; -MELATONIN10 M1 PO; -METO25ER PO; -METO5A PO; -Ondansetron Odt8 MG MM; -VITAMIN D350 MC3 PO; -VITAMIN E400 UNIT PO
[2023-08-08 13:40] LABS: BASOPHILS ABSOLUTE AUTO 0.03 K/mm3 (0.00-0.23); BASOPHILS PERCENT AUTO 0 % (0-2); EOSINOPHILS ABSOLUTE AUTO 0.11 K/mm3 (0.00-0.68); EOSINOPHILS PERCENT AUTO 2 % (0-6); Hematocrit 35.7 % (33.0-51.0); Hemoglobin 11.8 g/dL (11.5-16.0); IMMATURE GRAN ABSOLUTE AUTO 0.03 K/mm3 (0.00-0.10); IMMATURE GRAN PERCENT AUTO 0 % (0-1); LYMPHOCYTES ABSOLUTE AUTO 1.26 K/mm3 (0.84-5.20); LYMPHOCYTES PERCENT AUTO 17 % (21-46); MONOCYTES ABSOLUTE AUTO 0.76 K/mm3 (0.16-1.47); MONOCYTES PERCENT AUTO 10 % (4-13); Mean Corpuscular HGB 29.9 pg (26.0-34.0); Mean Corpuscular HGB Conc 33.1 g/dL (31.5-36.5); Mean Corpuscular Volume 90 fL (80-100); Mean Platelet Volume 9.1 fL (9.1-12.4); NEUTROPHILS ABSOLUTE AUTO 5.21 K/mm3 (1.96-9.15); NEUTROPHILS PERCENT AUTO 70 % (41-73); Platelet Count 150 K/mm3 (150-400); RDW Coefficient Variation 17.6 % (11.7-14.2); RDW Standard Deviation 58.7 fL (35.1-46.3); Red Blood Cell Count 3.95 M/mm3 (3.80-5.20)
[2023-08-08 13:50] LABS: Bicarbonate Venous 24.9 mmol/L (24.0-30.0); PCO2 Venous 53.7 mmHg (38-42); pH Blood Venous 7.33 (7.34-7.37)
[2023-08-08 14:00] LABS: Chloride (POC) 100 mmol/L (98-108); Creatinine (POC) 1.7 mg/dL (0.6-1.0); Glucose (ISTAT POC) 89 mg/dL (70-99); Hemoglobin (POC) 12.2 g/dL (12.0-16.0); Potassium (POC) 5.3 mmol/L (3.5-5.5); Sodium (POC) 133 mmol/L (135-148); Total CO2 (POC) 26 mmol/L (21-32)
[2023-08-08 14:29] LABS: Albumin, Blood 3.7 g/dL (3.4-5.0); Albumin/Globulin Ratio 1.1 (0.8-1.8); Bilirubin, Total 0.8 mg/dL (0.1-1.0); Bun/Creatinine Ratio 27.7 (12.0-20.0); Calcium, Blood 9.3 mg/dL (8.5-10.1); Creatinine, Blood 1.48 mg/dL (0.40-1.00); Globulin, Blood 3.4 g/dL (2.2-4.0); Magnesium, Blood 2.1 mg/dL (1.6-2.4); Potassium, Blood 4.7 mmol/L (3.5-5.5); Total Protein, Blood 7.1 g/dL (6.4-8.2)
[2023-08-08 14:57] LABS: Source, Urine Clean Catch
[2023-08-08 15:06] LABS: Appearance, Urine Clear (Clear); Bilirubin, Urine Neg (Neg); Blood, Urine Neg (Neg); Color, Urine Amber (P-Yellow); Glucose Qualitative, Urine Neg (Neg); Ketones, Urine Neg (Neg); Leukocyte Esterase, Urine 3+ (Neg); Nitrite, Urine Neg (Neg); Protein, Urine 1+ (Neg); Specific Gravity, Urine 1.015 (1.003-1.022); Urobilinogen, Urine NORM (Normal)
[2023-08-08 15:13] LABS: International Normalized Ratio 0.98; Prothrombin Time Results 10.3 Sec (9.7-11.5)
[2023-08-08 15:24] LABS: Bacteria Mod /hpf; Red Blood Cells, Urine 0-2 /hpf (0-2); Squamous Epithelial Cells Few /hpf (Few)
[2023-08-08] MEDS ORDERED: Lactated Ringer's 1,000 ML IV ONE (16:50)
[2023-08-08] MEDS ORDERED: Ondansetron 4 MG TAB PO PRN (17:35)
[2023-08-08] MEDS ORDERED: FLU VACC QS2023-24(6MOS UP)/PF 60 MCG/0.5 ML SYRINGE IM SCH (17:40)
[2023-08-08] MEDS ORDERED: Acetaminophen 325 MG TABLET PO PRN (17:40)
[2023-08-08] MEDS ORDERED: NS 1,000 ML IV SCH (17:40)
[2023-08-08] MEDS ORDERED: Melatonin 5 MG Tablet PO PRN (20:20)
[2023-08-08] MEDS ORDERED: OMEP20ER PO (20:43)
[2023-08-08] MEDS ORDERED: METO5A PO ×2 (20:48)
[2023-08-08] MEDS ORDERED: CEFDINIR300 M4 PO ×2 (20:49)
[2023-08-08] MEDS ORDERED: Docusate Sodium 100 MG Cap PO SCH (21:00)
[2023-08-08] MEDS ORDERED: CefTRIAXone Sodium 1,000 MG in NS 50 ML IV SCH (21:00)
--- NOTE | 2023-08-08 21:58 | NUR ---
PATIENT ARRIVED TO ROOM 302 FROM THE ER VIA GURNEY AND ONE PERSON TRANSFER. PATIENT IS ON RA UPON ARRIVAL AND IV SALINE LOCKED. PATIENT ABLE TO STAND AND TRANSFER TO BED WITH 1P ASSIST. PATIENT UP WITH PERSONAL ALL BLACK 4 WHEELED WALKER; PATIENT ARM BAND PLACED ON WALKER. PATIENT UP WITH ONE PERSONAL BELONGINGS BAG AND CELL PHONE. THIS RN ASSUMING CARE OF PATIENT.
[2023-08-08 22:05] VITALS: BP 101/89
[2023-08-08] MEDS ORDERED: MELATONIN10 M1 PO ×2 (22:18)
[2023-08-08] MEDS ORDERED: Ondansetron Odt8 MG MM ×2 (22:19)
[2023-08-08] MEDS ORDERED: VITAMIN D350 MC3 PO ×2 (22:22)
[2023-08-08] MEDS ORDERED: VITAMIN E400 UNIT PO ×2 (22:23)
[2023-08-08] MEDS ORDERED: Fleet Enema132 ML PR ×2 (22:24)
[2023-08-08] MEDS ORDERED: BISA10S PR ×2 (22:24)
[2023-08-08] MEDS ORDERED: DULCOLAX400 MG/5 M PO ×2 (22:24)
[2023-08-08] MEDS ORDERED: Acetaminophen650 M1 PO ×2 (22:24)
[2023-08-08] MEDS ORDERED: BISMUTH SUBSALICYLAT PO ×2 (22:27)
[2023-08-08] MEDS ORDERED: PROM12.5S PR ×2 (22:27)
[2023-08-09 02:27] VITALS: BP 116/47
[2023-08-09 05:59] LABS: BASOPHILS ABSOLUTE AUTO 0.02 K/mm3 (0.00-0.23); BASOPHILS PERCENT AUTO 0 % (0-2); EOSINOPHILS ABSOLUTE AUTO 0.11 K/mm3 (0.00-0.68); EOSINOPHILS PERCENT AUTO 2 % (0-6); Hematocrit 29.4 % (33.0-51.0); Hemoglobin 9.7 g/dL (11.5-16.0); IMMATURE GRAN ABSOLUTE AUTO 0.04 K/mm3 (0.00-0.10); IMMATURE GRAN PERCENT AUTO 1 % (0-1); LYMPHOCYTES ABSOLUTE AUTO 1.15 K/mm3 (0.84-5.20); LYMPHOCYTES PERCENT AUTO 23 % (21-46); MONOCYTES ABSOLUTE AUTO 0.77 K/mm3 (0.16-1.47); MONOCYTES PERCENT AUTO 15 % (4-13); Mean Corpuscular HGB 29.9 pg (26.0-34.0); Mean Corpuscular Volume 91 fL (80-100); Mean Platelet Volume 9.4 fL (9.1-12.4); NEUTROPHILS ABSOLUTE AUTO 2.91 K/mm3 (1.96-9.15); NEUTROPHILS PERCENT AUTO 58 % (41-73); Platelet Count 125 K/mm3 (150-400); RDW Coefficient Variation 17.7 % (11.7-14.2); RDW Standard Deviation 59.2 fL (35.1-46.3); Red Blood Cell Count 3.24 M/mm3 (3.80-5.20)
[2023-08-09] MEDS ORDERED: Omeprazole 20 MG CapCR PO SCH (06:00)
[2023-08-09 06:17] LABS: Albumin, Blood 2.8 g/dL (3.4-5.0); Albumin/Globulin Ratio 1.1 (0.8-1.8); Bilirubin, Total 0.4 mg/dL (0.1-1.0); Bun/Creatinine Ratio 29.6 (12.0-20.0); Calcium, Blood 8.5 mg/dL (8.5-10.1); Creatinine, Blood 1.15 mg/dL (0.40-1.00); Globulin, Blood 2.6 g/dL (2.2-4.0); Potassium, Blood 3.8 mmol/L (3.5-5.5); Total Protein, Blood 5.4 g/dL (6.4-8.2)
[2023-08-09 07:51] VITALS: BP 105/47
--- NOTE | 2023-08-09 08:17 | NUR ---
SHIFT SUMMARY. PATIENT IS AOX4. PATIENT IS A 1P ASSIST WITH 4 WHEELED WALKER. PATIENT ON RA. PATIENT IS ABLE TO MAKE HER NEEDS KNOWN. PATIENT CALLS APPROPRIATELY. PATIENT HAS HAD NO C/O PAIN OR DISCOMFORT THIS SHIFT. BED IS LOCKED IN THE LOWEST POSITION WITH CALL LIGHT IN REACH. NO ACUTE EVENTS T/O NIGHT. PATIENT IS ABLE TO CALL AND MAKE NEEDS KNOWN. NO S/S OF DISTRESS NOTED AT THIS TIME. REPORT GIVEN TO DAYSHIFT NURSE.
[2023-08-09] MEDS ORDERED: Isosorbide Mononitrate 60 MG TABCR PO SCH (09:00)
[2023-08-09] MEDS ORDERED: Enoxaparin 30 MG/0.3 ML SYR SC SCH (09:00)
[2023-08-09] MEDS ORDERED: Furosemide 20 MG Tab PO SCH (09:00)
--- NOTE | 2023-08-09 12:04 | NUR ---
Spiritual Care | Pt. request Pt. is awake and sitting in a chair when she welcomes my visit. Pt. is pleasant, and displays evidence of awareness and engagement. Pt. verbalizes her diagnosis and chair what she feels are greater "spiritual" needs in her family. Listened with a pastoral ear and a calming presence. After hearing the details, I prayed with the Pt. Pt. verbalized gratitude for the spiritual care visit and welcomed this lead security officer to return.
[2023-08-09 12:33] LABS: U Amphetamine Screen Not Detected; U Barbituate Screen Not Detected; U Benzodiazapine Screen Not Detected; U Buprenorphine Screen Not Detected; U Cannabinoids Screen Not Detected; U Cocaine Screen Not Detected; U Methadone Screen Not Detected; U Methamphetamine Screen Not Detected; U Opiates Screen Not Detected; U Oxycodone Screen Not Detected; U Phencyclidine Screen Not Detected
[2023-08-09 14:55] VITALS: BP 110/63
--- NOTE | 2023-08-09 16:16 | NUR ---
SHIFT SUMMARY MS POTTER IS ORIENTATED X4. SHE C/O HEADACHE AND R FLANK PAIN THIS MORNING THAT WAS HELPED A LITTLE BY TYLENOL BUT NOT ALEVIATED. SHE HAS BEEN SLEEPING ON AND OFF THROUGHOUT THE DAY. SHE HAS BEEN UP AMBULATING TO THE BATHROOM AND SAT UP IN THE CHAIR FOR A WHILE. IVF CONTINUE NS AT 150CC/HR FOR 3 LITRES. BED LOW, CALL LIGHT IN REACH, BED ALARM ON.
[2023-08-09 19:30] VITALS: BP 119/53
[2023-08-10 03:20] VITALS: BP 11/56
--- NOTE | 2023-08-10 04:00 | NUR ---
RESEARCH NUTRITIONIST SUMMARY PT A&O X 4, PLEASANT. PT C/O R FLANK PAIN AND A HEADACHE AT START OF SHIFT. PT GIVEN APAP WITH GOOD RELIEF. PT SLEPT THROUGH THE NIGHT. NO ACUTE CHANGES THIS SHIFT. 08/10/23 TRACI AVALOS RN
[2023-08-10 05:24] LABS: Percent Saturation 28.9 % (15.0-50.0); Thyroid Stimulating Hormone 6.78 uIU/mL (0.360-4.800)
[2023-08-10 07:41] VITALS: BP 106/50
[2023-08-10] MEDS ORDERED: METO25ER PO ×2 (11:55)
--- NOTE | 2023-08-10 13:38 | NUR ---
DC-1230 PT BROUGHT DOWN FOR DC IN IN STABLE CONDITION AND LEFT WITH ALL BELONGINGS. PT PICKED UP BY [facility]. NEW RX FAXED TO [facility] PER REQUEST.
== END 2023-08-10 12:36 | disposition hospice, inpatient (51) | DRG 683 ==
LOC: ER 12:49 → MEDS 17:34 → ENPENDDIS 08-10 11:02 → MEDS 08-10 12:36
PROVIDERS: Hospitalist; Physician Assistant; Student in an Organized Health Care Education/Training Program; ADMIT Family Medicine
DX: N17.0 Acute kidney failure with tubular necrosis (principal); I50.22 Chronic systolic (congestive) heart failure; N39.0 Urinary tract infection, site not specified; I25.10 Atherosclerotic heart disease of native coronary artery without angina pectoris; E78.5 Hyperlipidemia, unspecified; I11.0 Hypertensive heart disease with heart failure; J44.9 Chronic obstructive pulmonary disease, unspecified; E86.0 Dehydration; N20.0 Calculus of kidney; I95.1 Orthostatic hypotension; E86.9 Volume depletion, unspecified; R53.81 Other malaise; R11.2 Nausea with vomiting, unspecified; R29.6 Repeated falls; Z79.02 Long term (current) use of antithrombotics/antiplatelets; Z86.73 Personal history of transient ischemic attack (TIA), and cerebral infarction without residual deficits; Z85.3 Personal history of malignant neoplasm of breast; Z95.1 Presence of aortocoronary bypass graft; Z95.0 Presence of cardiac pacemaker; Z87.891 Personal history of nicotine dependence; Z87.19 Personal history of other diseases of the digestive system; Z85.118 Personal history of other malignant neoplasm of bronchus and lung
CPT/HCPCS: 36415; 70450; 74240; 76770; 80047; 80053; 81001; 82533; 82803; 83540; 83550; 83690; 83735; 83880; 84443; 85014; 85025; 85610; 87086; 93005; 93010; 96361; 96374; 97110; 97116; 97162; 99285-25; A9270; J0696; J1650; J7030; J7120